=== PATIENT | female | born 1950 | race Caucasian/White ===

== ENCOUNTER → 2016-04-11 | Outpatient (CLI) | payer MEDICARE, OTHER ==
--- NOTE | 2016-04-11 09:07 | REPMRS ---
Patient History The patient states she has not had a clinical breast exam in over a year. Patient is postmenopausal and has history of skin cancer at age 61. Family history of ovarian cancer in mother at age 53. 2 benign stereotatic breast biopsies of the right breast, 2008. Benign excisional biopsy of the left breast, 1976. Digital Woman Screen Mammo: April 11, 2016 - Exam #: [id number] Bilateral CC and MLO view(s) were taken. Technologist: Breann Murry, Technologist Prior study comparison: March 04, 2015, digital woman screen mammo performed at [facility]. February 11, 2014, digital woman screen mammo performed at [facility]. February 08, 2013, digital woman screen mammo performed at [facility]. FINDINGS: There are scattered fibroglandular densities. There has been no change in the appearance of the mammogram from the prior studies. There is a needle biopsy marker clip in the right breast. There is a mild amount of scattered fibroglandular density which is fairly symmetric. There is no interval development of dominant mass, architectural distortion, or clustered microcalcification suggestive of malignancy. ASSESSMENT: BI-RADS/ACR category 1 mammogram. Negative. Recommendation Routine screening mammogram in 1 year (for women over age 40). This mammogram was interpreted with the aid of an FDA-approved computer-aided dectection system. Electronically Signed By: Ghassan Parra MD 04/11/16 0907
== END ==
LOC: M WHC 08:31
PROVIDERS: ATTEND Family Medicine
DX: Z12.31 Encounter for screening mammogram for malignant neoplasm of breast (principal); Z85.828 Personal history of other malignant neoplasm of skin

== ENCOUNTER → 2016-07-05 | Outpatient (CLI) | payer MEDICARE, OTHER ==
[~2016-07-05] MED LIST: AMLO25TA PO; ASPI1TAB PO; ATEN100T PO; ATOR40TA PO; CALC600T57 PO; JANU100T PO; LOSA100T36 PO; METF850T PO; VITA100L PO; VITA200016 PO
[2016-07-05 08:01] LABS: ANION GAP 7 MEQ/L (8-16); BLOOD UREA NITROGEN 9 MG/DL (7-18); CARBON DIOXIDE LEVEL 28 MEQ/L (21-32); CHLORIDE LEVEL 107 MEQ/L (98-107); CREATININE FOR GFR 0.69 MG/DL (0.55-1.02); GLOMERULAR FILTRATION RATE > 60.0 (>45); GLUCOSE, FASTING 98 MG/DL (80-110); POTASSIUM SERUM 4.1 MEQ/L (3.5-5.1); SODIUM LEVEL 142 MEQ/L (136-145)
--- NOTE | 2016-07-05 08:56 | REP ---
TWO VIEW CHEST: No priors. There is no evidence of acute infiltrate. No pleural effusion is seen. The heart is normal in size. The mediastinal silhouette is unremarkable. The visualized osseous structures are intact. IMPRESSION: No acute pulmonary disease. Signed by Bjorn Pope MD 07/05/2016 09:41 A
--- NOTE | 2016-07-05 22:56 | ECGEPIP ---
Stationary ECG Study [facility] Test Date: 2016-07-05 Pat Name: ADRIAN ALANIZ Department: Room: - Gender: F Parole Director: CAROLYNN : 1950 Requested By: Zen Zhao Order Number: [id number] Reading MD: Zen Velasco Measurements Intervals [place] Rate: 77 P: 78 [place]: 142 QRS: 38 QRSD: 80 T: 49 QT: 367 QTc: 416 Interpretive Statements SINUS RHYTHM, Nonspecific ST-T abnormalities. Longer [place] interval compared with 11/22/2011. Electronically Signed On 07-05-2016 22:56:25 EDT by Zen Velasco
== END ==
LOC: M LAB 06:51
PROVIDERS: ATTEND Ophthalmology
DX: E11.9 Type 2 diabetes mellitus without complications (principal); I10 Essential (primary) hypertension

== ENCOUNTER 2016-07-14 08:05 | Day surgery (SDC) | payer MEDICARE, OTHER ==
[~2016-07-14] VITALS: Ht 162.6 cm; Wt 55.3 kg
[~2016-07-14 08:05] MED LIST changes: +ACETYLCHOLINE OPHTH SOLN 1% 2ML As Ordered ONE; +BALANCED SALT IRRIGATION SOLUTION 500ML BAG (FOR OR EYE MACHINE) As Ordered ONE; +CEFUROXIME 1MG/0.1ML INTRACAMERAL INJ As Ordered ONE; +HEALON DUET (HEALON 10MG/ML 0.55ML & HEALON ENDOCOAT 30MG/ML 0.85ML) As Ordered ONE; +LIDOCAINE 0.75%/EPINEPHRINE 0.025% IN BSS 1ML SYR INTRACAMERAL (OR ONLY) As Ordered ONE; +OFLOXACIN 0.3 % (OCUFLOX) OPTH SOL 5ML OS ONE; +PHENYLEPHRINE 2.5% OPHTH SOL 2ML OS ONE; +POVIDONE-IODINE 5% OPHTH PREP SOL 30ML As Ordered ONE; +PROPARACAINE 0.5% OPHTH SOL 15ML OS ONE; +TOBRADEX OPHTH OINT 3.5 GM As Ordered ONE; +TROPICAMIDE 1% OPHTH SOLN 2 ML OS ONE
[2016-07-14] MEDS ORDERED: fentaNYL 100 MCG/2 ML INJECTION (J3010) As Ordered ONE (11:39)
[2016-07-14] MEDS ORDERED: MIDAZOLAM INJ 2 MG/2 ML VIAL (J2250) As Ordered ONE (11:39)
[2016-07-14 12:40] VITALS: BP 140/78
--- NOTE | 2016-07-15 08:55 | RO ---
DATE OF PROCEDURE: 07/14/2016 PREOPERATIVE DIAGNOSIS: Visually significant nuclear sclerotic cataract left eye. POSTOPERATIVE DIAGNOSIS: Visually significant nuclear sclerotic cataract left eye. PROCEDURE: Cataract extraction with use of phacoemulsification and placement of intraocular lens AU00T0, 17.0 diopter, left eye. SURGEON: Cody Ch DO CHIEF DATA OFFICER: ANESTHESIA: Local with monitored anesthesia care (MAC). COMPLICATIONS: None. POSTOPERATIVE CONDITION: Stable. INDICATION FOR SURGERY: Blurred vision right eye affecting patient's activities of daily living. DESCRIPTION OF PROCEDURE: The patient was seen in the preoperative area and properly identified. The correct operative eye was identified and marked. Attention was turned to that eye. The patient received topical antibiotics in the preoperative area. The patient then received topical dilating drops consisting of tropicamide and phenylephrine. The patient was then transferred to the operating room. The correct side was reidentified. The patient received topical anesthetics and antibiotics on the surface of the eye. The eye was prepped and draped in a sterile fashion. The upper and lower eyelids were isolated with Tegaderm tape, and the lids were held open with an adjustable speculum. Using a sideport blade, a paracentesis incision was made. Intraocular preservative-free lidocaine was then injected into the anterior chamber. Viscoelastic was then injected into the anterior chamber through the paracentesis. Using a 2.65 mm sharp-tipped keratome, the anterior chamber was entered via a temporal clear corneal incision. A continuous curvilinear capsulorrhexis was created with the aid of a 26-gauge cystotome and Utrata forceps. Hydrodissection was performed with balanced salt solution (BSS) on a blunt cannula until the nucleus was freely mobile. The crystalline lens was phacoemulsified and aspirated. Additional cohesive viscoelastic was placed into the capsular bag to deepen it. An AU00T0, 17.0 diopter lens was placed into the capsular bag and confirmed by visualizing the continuous curvilinear capsulorrhexis. Additional irrigation and aspiration was used to remove cortical material and remaining viscoelastic. The clear corneal incision was hydrated with BSS on a blunt cannula. The lens was well positioned. The incisions were then tested for leaks and found to be negative. The eye was then palpated for appropriate pressure and adjusted accordingly with BSS. The eyelid speculum was then carefully removed. Tobradex ointment was placed in the eye. An eye patch and shield were then secured over the eye. The patient tolerated the procedure well and was discharged to the recovery unit in a stable condition. ANN
== END 2016-07-14 12:40 | disposition home or self-care (01) ==
LOC: M SDC 08:05
PROVIDERS: ATTEND Ophthalmology
DX: H25.12 Age-related nuclear cataract, left eye (principal); E11.9 Type 2 diabetes mellitus without complications; I10 Essential (primary) hypertension; E78.5 Hyperlipidemia, unspecified; Z79.82 Long term (current) use of aspirin; Z79.899 Other long term (current) drug therapy; Z87.891 Personal history of nicotine dependence; Z86.73 Personal history of transient ischemic attack (TIA), and cerebral infarction without residual deficits
CPT/HCPCS: 66984; J2250; J3010; V2632

== ENCOUNTER → 2016-07-28 | Day surgery (SDC) | payer MEDICARE, OTHER ==
[~2016-07-28] VITALS: Ht 162.6 cm; Wt 55.3 kg
[~2016-07-28] MED LIST changes: +D5W/0.2% SODIUM CHLORIDE 250 ML IV SCH; +LIDOCAINE 4% INJ 5 ML AMP XX ONE; +MIDAZOLAM INJ 2 MG/2 ML VIAL (J2250) As Ordered ONE; +OFLOXACIN 0.3 % (OCUFLOX) OPTH SOL 5ML OD ONE; -OFLOXACIN 0.3 % (OCUFLOX) OPTH SOL 5ML OS ONE; +PHENYLEPHRINE 2.5% OPHTH SOL 2ML OD ONE; -PHENYLEPHRINE 2.5% OPHTH SOL 2ML OS ONE; +PROPARACAINE 0.5% OPHTH SOL 15ML OD ONE; -PROPARACAINE 0.5% OPHTH SOL 15ML OS ONE; +TROPICAMIDE 1% OPHTH SOLN 2 ML OD ONE; -TROPICAMIDE 1% OPHTH SOLN 2 ML OS ONE; +fentaNYL 100 MCG/2 ML INJECTION (J3010) As Ordered ONE
[2016-07-28 12:55] VITALS: BP 127/65
--- NOTE | 2016-07-29 10:07 | RO ---
DATE OF PROCEDURE: 07/28/2016 PREOPERATIVE DIAGNOSIS: Visually significant nuclear sclerotic cataract right eye. POSTOPERATIVE DIAGNOSIS: Visually significant nuclear sclerotic cataract right eye. PROCEDURE: Cataract extraction with use of phacoemulsification and placement of intraocular lens AU00T0, 17.0 Diopter, right eye. SURGEON: Cody Ch DO VOICE COACH: ANESTHESIA: Local with monitored anesthesia care (MAC). COMPLICATIONS: None. POSTOPERATIVE CONDITION: Stable. INDICATION FOR SURGERY: Blurred vision right eye affecting patient's activities of daily living. DESCRIPTION OF PROCEDURE: The patient was seen in the preoperative area and properly identified. The correct operative eye was identified and marked. Attention was turned to that eye. The patient received topical antibiotics in the preoperative area. The patient then received topical dilating drops consisting of tropicamide and phenylephrine. The patient was then transferred to the operating room. The correct side was reidentified. The patient received topical anesthetics and antibiotics on the surface of the eye. The eye was prepped and draped in a sterile fashion. The upper and lower eyelids were isolated with Tegaderm tape, and the lids were held open with an adjustable speculum. Using a sideport blade, a paracentesis incision was made. Intraocular preservative-free lidocaine was then injected into the anterior chamber. Viscoelastic was then injected into the anterior chamber through the paracentesis. Using a 2.65 mm sharp-tipped keratome, the anterior chamber was entered via a temporal clear corneal incision. A continuous curvilinear capsulorrhexis was created with the aid of a 26-gauge cystotome and Utrata forceps. Hydrodissection was performed with balanced salt solution (BSS) on a blunt cannula until the nucleus was freely mobile. The crystalline lens was phacoemulsified and aspirated. Additional cohesive viscoelastic was placed into the capsular bag to deepen it. An AU00T0 lens was placed into the capsular bag and confirmed by visualizing the continuous curvilinear capsulorrhexis. Additional irrigation and aspiration was used to remove cortical material and remaining viscoelastic. The clear corneal incision was hydrated with BSS on a blunt cannula. The lens was well positioned. The incisions were then tested for leaks and found to be negative. The eye was then palpated for appropriate pressure and adjusted accordingly with BSS. The eyelid speculum was then carefully removed. Tobradex ointment was placed in the eye. An eye patch and shield were then secured over the eye. The patient tolerated the procedure well and was discharged to the recovery unit in a stable condition. ANN
== END | disposition home or self-care (01) ==
LOC: M SDC 09:21
PROVIDERS: ATTEND Ophthalmology
DX: H25.11 Age-related nuclear cataract, right eye (principal); E11.9 Type 2 diabetes mellitus without complications; I10 Essential (primary) hypertension; E78.5 Hyperlipidemia, unspecified; Z86.79 Personal history of other diseases of the circulatory system; Z87.891 Personal history of nicotine dependence; Z79.899 Other long term (current) drug therapy; Z79.82 Long term (current) use of aspirin
CPT/HCPCS: 66984; J2250; J3010; V2632

== ENCOUNTER → 2016-08-08 | Outpatient (REF) | payer MEDICARE, OTHER ==
[~2016-08-08] MED LIST changes: -ACETYLCHOLINE OPHTH SOLN 1% 2ML As Ordered ONE; -BALANCED SALT IRRIGATION SOLUTION 500ML BAG (FOR OR EYE MACHINE) As Ordered ONE; -CEFUROXIME 1MG/0.1ML INTRACAMERAL INJ As Ordered ONE; -D5W/0.2% SODIUM CHLORIDE 250 ML IV SCH; -HEALON DUET (HEALON 10MG/ML 0.55ML & HEALON ENDOCOAT 30MG/ML 0.85ML) As Ordered ONE; -LIDOCAINE 0.75%/EPINEPHRINE 0.025% IN BSS 1ML SYR INTRACAMERAL (OR ONLY) As Ordered ONE; -LIDOCAINE 4% INJ 5 ML AMP XX ONE; -MIDAZOLAM INJ 2 MG/2 ML VIAL (J2250) As Ordered ONE; -OFLOXACIN 0.3 % (OCUFLOX) OPTH SOL 5ML OD ONE; -PHENYLEPHRINE 2.5% OPHTH SOL 2ML OD ONE; -POVIDONE-IODINE 5% OPHTH PREP SOL 30ML As Ordered ONE; -PROPARACAINE 0.5% OPHTH SOL 15ML OD ONE; -TOBRADEX OPHTH OINT 3.5 GM As Ordered ONE; -TROPICAMIDE 1% OPHTH SOLN 2 ML OD ONE; -fentaNYL 100 MCG/2 ML INJECTION (J3010) As Ordered ONE
[2016-08-08 16:20] LABS: ALBUMIN 3.6 GM/DL (3.2-5.2); ALBUMIN/GLOBULIN RATIO 1.09 (1.00-1.93); ALKALINE PHOSPHATASE 70 U/L (45-117); ALT/SGPT 21 U/L (12-78); ANION GAP 7 MEQ/L (8-16); AST/SGOT 24 U/L (15-37); BILIRUBIN,TOTAL 1.1 MG/DL (0.2-1.0); BLOOD UREA NITROGEN 11 MG/DL (7-18); CALCIUM LEVEL 9.1 MG/DL (8.8-10.2); CARBON DIOXIDE LEVEL 30 MEQ/L (21-32); CHLORIDE LEVEL 106 MEQ/L (98-107); CHOLESTEROL LEVEL 171 MG/DL (<200); CREATININE FOR GFR 0.69 MG/DL (0.55-1.02); GLOMERULAR FILTRATION RATE > 60.0 (>45); GLUCOSE, FASTING 91 MG/DL (80-110); POTASSIUM SERUM 4.2 MEQ/L (3.5-5.1); SODIUM LEVEL 143 MEQ/L (136-145); TOTAL PROTEIN 6.9 GM/DL (6.4-8.2); TRIGLYCERIDES LEVEL 73 MG/DL (<150)
== END ==
LOC: M SFHCPLAZ 09:55
PROVIDERS: ATTEND Family Medicine
DX: E78.2 Mixed hyperlipidemia (principal); E11.9 Type 2 diabetes mellitus without complications

== ENCOUNTER → 2016-12-14 | Outpatient (CLI) | payer MEDICARE, OTHER ==
[~2016-12-14] MED LIST changes: -ATOR40TA PO; +ATOR40TA75 PO; -METF850T PO; +METF850T4 PO
--- NOTE | 2016-12-15 16:02 | REP ---
MRA BRAIN WITHOUT CONTRAST: 12/14/2016. COMPARISON: 12/15/2014, 12/14/2013, 11/26/2012. CLINICAL HISTORY: Follow-up anterior communicating artery aneurysm. TECHNIQUE: 3D [id number], gradient echo, axial images without contrast for a volume acquisition and MIP reformats of the volume acquisition rotated about the longitudinal and horizontal axis of the brain for anterior and posterior circulations. All source images are reviewed. On the initial images which were the first that she has had on new 3T scan, had the well visualized anterior communicating artery aneurysm at 6 mm size on multiple previous scans is occult benign finding on both the source images and MIP reformats. In addition, there is artifact at the internal carotid artery turning horizontally in the skull base in bilateral fashion which is felt to be flow related. I asked that the patient return for repeat scanning on 12/15/2016 with different technical parameters. The dictation below reflects those parameters and findings. FINDINGS: The source images do demonstrate the 6 mm anterior communicating artery aneurysm very well and it is unchanged in size and appearance from the previous studies. The source images also show less artifact in the horizontal portions of the internal carotids as they from vertical to horizontal in the temporal bones. There are no other aneurysms evident in the anterior or posterior circulation. There is a dominant left vertebral artery contribution to the basilar artery with basilar tortuosity without aneurysm. There is a origin in part for the posterior cerebral artery on the right with patent posterior communicating artery while the left posterior cerebral artery as its sole supply from the basilar tip. No basilar tip aneurysm. The right internal carotid shows no stenosis or aneurysm in the skull base to the carotid siphons. Some flow artifact suggested at the term from vertical to horizontal in the temporal bone as on previous studies in 2014 and earlier but certainly less notable than on yesterday's initial scan at 3T. The cavernous sinus shows some minimal atherosclerotic changes. The supraclinoid carotid, A1 and M1 segments were intact. The middle cerebral artery branches were unremarkable. There is anterior communicating artery aneurysm which is best seen on the source images but is seen also on the tumble images of the whole brain and better than the individual right and left internal carotid MIP's. Certainly the left internal carotid shows no stenosis or aneurysm. There is minor atherosclerotic changes in the carotid siphon. The supraclinoid, A1 and M1 segments are unchanged. There is a smaller left than right A1 segment. The anterior communicating artery aneurysm is seen on the tumble images. The A2 and M2 segments and their branches grossly intact. IMPRESSION: 1. 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 Best seen on the source images but also seen on other sequences and MIP reformats but not changed from the multiple prior studies. No other significant finding. Stable exam. Signed by Akbar Reyes MD 12/15/2016 05:16 P
== END ==
LOC: M RAD 09:41
PROVIDERS: ATTEND Family Medicine
DX: I67.1 Cerebral aneurysm, nonruptured (principal)

== ENCOUNTER → 2017-04-19 | Outpatient (CLI) | payer MEDICARE, OTHER | LOC: M WHC 07:56 | DX: Z12.31 Encounter for screening mammogram for malignant neoplasm of breast (principal); Z78.0 Asymptomatic menopausal state; Z86.000 Personal history of in-situ neoplasm of breast; M85.80 Other specified disorders of bone density and structure, unspecified site | CPT/HCPCS: 77067 ==

== ENCOUNTER → 2017-05-11 | Outpatient (CLI) | payer MEDICARE, OTHER | LOC: M WUC 09:36 | DX: R05 Cough (principal) | CPT/HCPCS: 71046 ==

== ENCOUNTER → 2017-06-29 | Outpatient (REF) | payer MEDICARE, OTHER | LOC: M LAB REF 17:56 | DX: C44.519 Basal cell carcinoma of skin of other part of trunk (principal) | CPT/HCPCS: 88305 ==

== ENCOUNTER → 2017-08-04 | Outpatient (REF) | payer MEDICARE, OTHER ==
[2017-08-04 12:12] LABS: BASO % 0.5 % (0.0-1.0); EOS # 0.1 10^3/uL (0.0-0.50); EOS % 1.1 % (0.0-3.0); HEMATOCRIT 40.1 % (36.0-47.0); IMMATURE GRANULOCYTE % 0.2 % (0-3.0); LYMPH # 1.7 10^3/uL (1.5-4.5); LYMPH % 27.3 % (24.0-44.0); MEAN CORPUSCULAR HEMOGLOBIN 29.1 pg (27.0-33.0); MEAN CORPUSCULAR HGB CONC 32.4 g/dl (32.0-36.5); MEAN CORPUSCULAR VOLUME 89.9 fl (80.0-96.0); MONO # 0.6 10^3/uL (0.0-0.8); NEUTROPHILS # 3.7 10^3/uL (1.8-7.7); NEUTROPHILS % 60.9 % (36.0-66.0); PLATELET COUNT, AUTOMATED 340 10^3/uL (150-450); RED BLOOD COUNT 4.46 10^6/uL (4.00-5.40); RED CELL DISTRIBUTION WIDTH 13.6 % (11.5-14.5); WHITE BLOOD COUNT 6.1 10^3/uL (4.0-10.0)
[2017-08-04 12:48] LABS: ALBUMIN 3.5 GM/DL (3.2-5.2); ALBUMIN/GLOBULIN RATIO 1.03 (1.00-1.93); ALKALINE PHOSPHATASE 65 U/L (45-117); ALT/SGPT 22 U/L (12-78); ANION GAP 7 MEQ/L (8-16); AST/SGOT 29 U/L (7-37); BILIRUBIN,TOTAL 0.8 MG/DL (0.2-1.0); BLOOD UREA NITROGEN 9 MG/DL (7-18); CARBON DIOXIDE LEVEL 28 MEQ/L (21-32); CHLORIDE LEVEL 108 MEQ/L (98-107); CREATININE FOR GFR 0.66 MG/DL (0.55-1.30); FERRITIN 7 NG/ML (8-252); GLOMERULAR FILTRATION RATE > 60.0 (>45); GLUCOSE, FASTING 93 MG/DL (70-100); IRON (FE) 44 UG/DL (50-170); MAGNESIUM LEVEL 1.5 MG/DL (1.8-2.4); PERCENT SATURATION 11.1 % (13.2-45.0); POTASSIUM SERUM 4.4 MEQ/L (3.5-5.1); SODIUM LEVEL 143 MEQ/L (136-145); TOTAL IRON BINDING CAPACITY 398 UG/DL (250-450); TOTAL PROTEIN 6.9 GM/DL (6.4-8.2); VITAMIN B12 LEVEL 1354 PG/ML (247-911)
[2017-08-04 12:49] LABS: ESTIMATED AVERAGE GLUCOSE 123 MG/DL (60-110); HEMOGLOBIN A1c 5.9 %
== END ==
LOC: M LABDRAW1 08:08
DX: E53.8 Deficiency of other specified B group vitamins (principal); E11.9 Type 2 diabetes mellitus without complications; I10 Essential (primary) hypertension
CPT/HCPCS: 83550

== ENCOUNTER → 2017-08-31 | Outpatient (CLI) | payer MEDICARE, OTHER | LOC: M WUC 09:30 | DX: M19.071 Primary osteoarthritis, right ankle and foot (principal); M85.871 Other specified disorders of bone density and structure, right ankle and foot | CPT/HCPCS: 73630 ==

== ENCOUNTER → 2018-05-08 | Outpatient (REF) | payer MEDICARE, OTHER ==
[~2018-05-08] MED LIST changes: -LOSA100T36 PO; +LOSA100T50 PO
[2018-05-08 10:51] LABS: APPEARANCE, URINE CLEAR (CLEAR); BACTERIA, URINE AUTO NEGATIVE (NEGATIVE); BILIRUBIN, URINE AUTO NEGATIVE (NEGATIVE); BLOOD, URINE BLOOD NEGATIVE (NEGATIVE); COLOR, URINE YELLOW (YELLOW); GLUCOSE, URINE (UA) AUTO NEGATIVE (NEGATIVE); KETONE, URINE AUTO NEGATIVE (NEGATIVE); LEUKOCYTE ESTERASE, URINE AUTO NEGATIVE (NEGATIVE); MUCUS, URINE SMALL (NEGATIVE); NITRITE, URINE AUTO NEGATIVE (NEGATIVE); PROTEIN, URINE AUTO NEGATIVE (NEGATIVE); RBC, URINE AUTO 0 /HPF (0-3); SPECIFIC GRAVITY URINE AUTO 1.016 (1.002-1.035); SQUAMOUS EPITHELIAL CELL UR AU 0 /HPF (0-6); UROBILINOGEN, URINE AUTO 0.2 mg/dL (0.0-2.0); WBC, URINE AUTO 0 /HPF (0-3)
[2018-05-08 10:53] LABS: BASO % 0.4 % (0.0-1.0); EOS % 0.4 % (0.0-3.0); HEMATOCRIT 40.2 % (36.0-47.0); LYMPH # 1.8 10^3/uL (1.5-4.5); LYMPH % 26.3 % (24.0-44.0); MEAN CORPUSCULAR HEMOGLOBIN 29.1 pg (27.0-33.0); MEAN CORPUSCULAR HGB CONC 32.3 g/dl (32.0-36.5); MEAN CORPUSCULAR VOLUME 89.9 fl (80.0-96.0); MONO # 0.6 10^3/uL (0.0-0.8); MONO % 8.6 % (0.0-5.0); NEUTROPHILS # 4.4 10^3/uL (1.8-7.7); NEUTROPHILS % 63.9 % (36.0-66.0); PLATELET COUNT, AUTOMATED 335 10^3/uL (150-450); RED BLOOD COUNT 4.47 10^6/uL (4.00-5.40); WHITE BLOOD COUNT 6.9 10^3/uL (4.0-10.0)
[2018-05-08 10:58] LABS: ALBUMIN 3.7 GM/DL (3.2-5.2); ALT/SGPT 23 U/L (12-78); BILIRUBIN,TOTAL 1.2 MG/DL (0.2-1.0); BLOOD UREA NITROGEN 11 MG/DL (7-18); CALCIUM LEVEL 9.1 MG/DL (8.8-10.2); CARBON DIOXIDE LEVEL 26 MEQ/L (21-32); CHLORIDE LEVEL 106 MEQ/L (98-107); CHOLESTEROL LEVEL 171 MG/DL (<200); CHOLESTEROL RISK RATIO 1.921 (<5); CREATININE FOR GFR 0.73 MG/DL (0.55-1.30); GLOMERULAR FILTRATION RATE > 60.0 (>45); GLUCOSE, FASTING 90 MG/DL (70-100); HDL CHOLESTEROL 89 MG/DL (>40); LDL CHOLESTEROL 67 MG/DL (<100); NON-HDL-C 82 MG/DL; POTASSIUM SERUM 4.2 MEQ/L (3.5-5.1); SODIUM LEVEL 141 MEQ/L (136-145); TOTAL PROTEIN 6.9 GM/DL (6.4-8.2); TRIGLYCERIDES LEVEL 74 MG/DL (<150)
[2018-05-08 11:33] LABS: HEMOGLOBIN A1c 6.3 %
[2018-05-08 11:36] LABS: MAU/CREAT RATIO 5.5 MCG/MG (0.0-30.0)
[2018-05-08 11:51] LABS: PTH INTACT 30.1 PG/ML (18.5-88.0); TOTAL 25(OH) VITAMIN D 68.1 NG/ML (30.0-100.0)
== END ==
LOC: M LABDRAW1 09:17
PROVIDERS: ATTEND Family Medicine
DX: D50.9 Iron deficiency anemia, unspecified (principal); E55.9 Vitamin D deficiency, unspecified; E11.9 Type 2 diabetes mellitus without complications; Z79.899 Other long term (current) drug therapy

== ENCOUNTER → 2018-07-03 | Outpatient (CLI) | payer MEDICARE, OTHER ==
[~2018-07-03] MED LIST changes: -ASPI1TAB PO; +ASPI81TA26 PO
--- NOTE | 2018-07-03 09:47 | REPMRS ---
Patient History The patient states she has not had a clinical breast exam in over a year. Patient is postmenopausal and has history of basal cell skin cancer at age 61. Family history of ovarian cancer at age 53 in mother. 2 benign stereotatic breast biopsies of the right breast, 2008. Benign excisional biopsy of the left breast, 1976. No Hormone Replacement Therapy 3D TOMOSYNTHESIS WAS PERFORMED. Digital Woman Screen Mammo: July 03, 2018 - Exam #: [id number] Bilateral CC and MLO view(s) were taken. Technologist: Teagan Haung, Technologist Prior study comparison: April 19, 2017, digital woman screen mammo performed at [facility]. April 11, 2016, digital woman screen mammo performed at [facility]. FINDINGS: The breast tissue is heterogeneously dense. This may lower the sensitivity of mammography. There has been no change in the appearance of the mammogram from the prior studies. There is a moderate amount of residual fibroglandular tissue which is fairly symmetric. There is no interval development of dominant mass, areas of architectural distortion, or clustered microcalcification typical of malignancy. Assessment: BI-RADS/ACR category 1 mammogram. Negative Mammogram. Recommendation Routine screening mammogram in 1 year (for women over age 40). This mammogram was interpreted with the aid of an FDA-approved computer-aided dectection system. Electronically Signed By: Bjorn Pope MD 07/03/18 0947
--- NOTE | 2018-07-03 11:39 | REP ---
RIGHT UPPER QUADRANT ULTRASOUND: Real-time sonographic evaluation of the right upper quadrant performed. There are multiple tiny 2 mm polyps in the gallbladder. No gallstones are seen. There is no significant gallbladder wall thickening. There is no free fluid in the right upper quadrant. There is no intrahepatic or extrahepatic biliary dilatation, common bile duct measuring 6 mm. The liver demonstrates a few cysts, one is seen in the superior posterior left lobe of the liver 9 x 14 x 13 mm containing a septation, another is seen in the superior left lobe 1.9 cm in diameter and another is seen in the posterior superior right lobe of the liver 2.7 cm in diameter. In that of the pancreas, there is an ill-defined hypoechoic area measuring 1.8 x 1.7 x 0.7 cm. Right kidney demonstrates no hydronephrosis with length of 9.1 cm. IMPRESSION: Several tiny polyps in the gallbladder without gallstones, gallbladder wall thickening or free fluid. No biliary dilatation. There are a few cysts seen in the liver as discussed above. There is an ill-defined hypoechoic area in the head of the pancreas 1.8 x 1.7 x 0.7 cm. I would recommended dedicated MRI of the pancreas with and without contrast to further evaluate.
== END ==
LOC: M WHC 08:55
PROVIDERS: ATTEND Family Medicine
DX: Z12.31 Encounter for screening mammogram for malignant neoplasm of breast (principal); E80.4 Gilbert syndrome; Z80.41 Family history of malignant neoplasm of ovary; Z85.828 Personal history of other malignant neoplasm of skin

== ENCOUNTER → 2018-07-06 | Outpatient (CLI) | payer MEDICARE, OTHER ==
--- NOTE | 2018-07-06 10:05 | REP ---
MRI PANCREAS WITH AND WITHOUT CONTRAST: Multiple sequences obtained in the axial and coronal planes prior to and following the intravenous administration of 10 mL ProHance. Recent ultrasound showed a possible lesion in the head of the pancreas. Pancreas demonstrates homogeneous signal. There is a 4 mm cyst in the tail of the pancreas. No other pancreatic cyst or mass is seen. Pancreatic duct is normal in caliber. Common bile duct is normal in caliber. The visualized portions of the liver demonstrate multiple cysts. The largest is in the posterior inferior right lobe measuring 2.9 cm in diameter. The spleen and adrenals are unremarkable. Subcentimeter cyst is seen in the upper pole of the right kidney. There is no hydronephrosis. I see no adenopathy or free fluid in the visualized abdomen. Initial coronal images show a cystic structure in the right pelvis measuring 2.7 cm in diameter. Comparing back to a prior pelvic ultrasound 06/19/2013 there was a cyst in the right ovary at that time which had a maximum diameter of 2.9 cm and therefore this is likely a stable cyst. Also noted is an apparent 1 cm uterine fibroid. IMPRESSION: No suspicious pancreatic mass. No abnormality is seen in the head of the pancreas. There is a benign appearing 4 mm cyst in the tail of the pancreas. There is no pancreatic duct or common bile duct dilatation. Multiple cysts are seen in the liver. Also incidentally noted is a right adnexal cyst measuring 2.7 cm in maximum diameter, likely unchanged since the prior pelvic ultrasound 06/19/2013. Also incidentally noted is a 1 cm uterine fibroid also seen on that prior pelvic ultrasound. Electronically Signed by Bjorn Pope MD 07/06/2018 04:14 P
== END ==
LOC: M PLARAD 07:38
PROVIDERS: ATTEND Family Medicine
DX: K86.9 Disease of pancreas, unspecified (principal); N83.8 Other noninflammatory disorders of ovary, fallopian tube and broad ligament; K76.89 Other specified diseases of liver; D25.9 Leiomyoma of uterus, unspecified

== ENCOUNTER → 2018-11-16 | Outpatient (REF) | payer MEDICARE, OTHER ==
[2018-11-16 11:58] LABS: BASO % 0.5 % (0.0-1.0); EOS # 0.1 10^3/uL (0.0-0.50); EOS % 0.9 % (0.0-3.0); HEMATOCRIT 40.3 % (36.0-47.0); HEMOGLOBIN 12.8 g/dl (12.0-15.5); LYMPH # 1.9 10^3/uL (1.5-4.5); LYMPH % 22.1 % (24.0-44.0); MEAN CORPUSCULAR HEMOGLOBIN 27.9 pg (27.0-33.0); MEAN CORPUSCULAR HGB CONC 31.8 g/dl (32.0-36.5); MEAN CORPUSCULAR VOLUME 87.8 fl (80.0-96.0); MONO # 0.7 10^3/uL (0.0-0.8); MONO % 7.9 % (0.0-5.0); NEUTROPHILS # 5.9 10^3/uL (1.8-7.7); NEUTROPHILS % 68.3 % (36.0-66.0); PLATELET COUNT, AUTOMATED 361 10^3/uL (150-450); RED BLOOD COUNT 4.59 10^6/uL (4.00-5.40); WHITE BLOOD COUNT 8.6 10^3/uL (4.0-10.0)
[2018-11-16 12:05] LABS: ALBUMIN 3.5 GM/DL (3.2-5.2); ALT/SGPT 25 U/L (12-78); BILIRUBIN,DIRECT 0.2 MG/DL (0.0-0.2); BILIRUBIN,TOTAL 0.8 MG/DL (0.2-1.0); BLOOD UREA NITROGEN 15 MG/DL (7-18); CALCIUM LEVEL 9.5 MG/DL (8.8-10.2); CARBON DIOXIDE LEVEL 29 MEQ/L (21-32); CHLORIDE LEVEL 105 MEQ/L (98-107); CREATININE FOR GFR 0.85 MG/DL (0.55-1.30); GLOMERULAR FILTRATION RATE > 60.0 (>45); GLUCOSE, FASTING 85 MG/DL (70-100); MAGNESIUM LEVEL 1.4 MG/DL (1.8-2.4); POTASSIUM SERUM 4.3 MEQ/L (3.5-5.1); SODIUM LEVEL 141 MEQ/L (136-145); TOTAL PROTEIN 6.7 GM/DL (6.4-8.2)
[2018-11-16 12:11] LABS: VITAMIN B12 LEVEL 907 PG/ML (247-911)
[2018-11-16 13:00] LABS: HEMOGLOBIN A1c 6.3 %
== END ==
LOC: M LABDRAW1 08:09
PROVIDERS: ATTEND Family Medicine
DX: I10 Essential (primary) hypertension (principal); E11.9 Type 2 diabetes mellitus without complications

== ENCOUNTER → 2018-12-07 | Outpatient (CLI) | payer MEDICARE, OTHER ==
--- NOTE | 2018-12-07 16:11 | REP ---
MR angiography the brain without contrast: History: A followup for known anterior communicating artery aneurysm, 6 mm by prior studies. Technique: 3-D [id number] MR angiography of the brain is acquired in the usual fashion and maximal intensity projection images were generated in rotational format about the vertical and horizontal axes. In addition, source axial T1-weighted images are viewed in cine mode. MR angiographic findings: The distal vertebral arteries are patent left is dominant. Basilar artery is a little tortuous but widely patent. The posterior cerebral and superior cerebellar vessels are normal and symmetric. The distal internal carotid arteries are unremarkable. Anterior and middle cerebral arteries appear intact. The known 6 mm anterior communicating artery aneurysm is again seen unchanged in size or appearance. It is best seen on source images as on previous studies. There is no new aneurysm. There is no evidence of arterial venous malformation. Impression: Stable 6 mm anterior communicating artery bell aneurysm unchanged from multiple prior studies. Otherwise unremarkable MR angiography the brain. Electronically Signed by Darwin Parra MD 12/07/2018 08:22 A
== END ==
LOC: M PLARAD 07:35
PROVIDERS: ATTEND Family Medicine
DX: I67.1 Cerebral aneurysm, nonruptured (principal)

== ENCOUNTER → 2019-05-17 | Outpatient (REF) | payer MEDICARE, OTHER ==
[2019-05-17 12:42] LABS: BASO % 0.4 % (0.0-1.0); EOS # 0.1 10^3/uL (0.0-0.5); EOS % 0.6 % (0.0-3.0); HEMATOCRIT 41.8 % (36.0-47.0); HEMOGLOBIN 13.1 g/dl (12.0-15.5); LYMPH # 2.3 10^3/uL (1.5-5.0); MEAN CORPUSCULAR HEMOGLOBIN 28.4 pg (27.0-33.0); MEAN CORPUSCULAR HGB CONC 31.3 g/dl (32.0-36.5); MEAN CORPUSCULAR VOLUME 90.5 fl (80.0-96.0); MONO # 0.7 10^3/uL (0.0-0.8); MONO % 8.5 % (0.0-5.0); NEUTROPHILS # 4.8 10^3/uL (1.5-8.5); NEUTROPHILS % 61.1 % (36.0-66.0); PLATELET COUNT, AUTOMATED 322 10^3/uL (150-450); RED BLOOD COUNT 4.62 10^6/uL (4.00-5.40); WHITE BLOOD COUNT 7.9 10^3/uL (4.0-10.0)
[2019-05-17 13:01] LABS: ALBUMIN 3.6 GM/DL (3.2-5.2); ALT/SGPT 21 U/L (12-78); BILIRUBIN,TOTAL 0.9 MG/DL (0.2-1.0); BLOOD UREA NITROGEN 14 MG/DL (7-18); CALCIUM LEVEL 9.2 MG/DL (8.8-10.2); CARBON DIOXIDE LEVEL 28 MEQ/L (21-32); CHLORIDE LEVEL 106 MEQ/L (98-107); CHOLESTEROL LEVEL 156 MG/DL (<200); CHOLESTEROL RISK RATIO 2.052 (<5); CREATININE FOR GFR 0.76 MG/DL (0.55-1.30); FREE T4 1.21 NG/DL (0.76-1.46); GLOMERULAR FILTRATION RATE > 60.0 (>39); GLUCOSE, FASTING 96 MG/DL (70-100); HDL CHOLESTEROL 76 MG/DL (>40); LDL CHOLESTEROL 67 MG/DL (<100); NON-HDL-C 80 MG/DL; POTASSIUM SERUM 4.1 MEQ/L (3.5-5.1); PTH INTACT 26.7 PG/ML (18.5-88.0); SODIUM LEVEL 142 MEQ/L (136-145); TOTAL 25(OH) VITAMIN D 73.1 NG/ML (30.0-100.0); TOTAL PROTEIN 6.6 GM/DL (6.4-8.2); TRIGLYCERIDES LEVEL 64 MG/DL (<150)
[2019-05-17 13:07] LABS: HEMOGLOBIN A1c 6.1 %
== END ==
LOC: M LABDRAW1 11:57
PROVIDERS: ATTEND Family Medicine
DX: D50.9 Iron deficiency anemia, unspecified (principal); E11.9 Type 2 diabetes mellitus without complications; E55.9 Vitamin D deficiency, unspecified

== ENCOUNTER → 2019-06-07 | Outpatient (CLI) | payer MEDICARE, OTHER ==
--- NOTE | 2019-06-07 11:05 | REP ---
LUMBAR SPINE SERIES: Seven views. HISTORY: Spondylosis. Comparison lumbar spine radiographs are from December 07, 2014. FINDINGS: Lumbar vertebral body heights are preserved. Alignment is normal and unchanged. There is degenerative disc spurring and L2-3 and L1-2 essentially unchanged from the 2015 study. Pedicles and posterior elements are intact. Facet sclerosis and hypertrophy is noted bilaterally at L5-S1 in L4-5. There is some left-sided facet hypertrophy at L3-4. The pedicles and posterior elements are intact. Sacrum and SI joints are unremarkable. Psoas margins are symmetric. Bowel gas pattern is normal. There is an irregular 1.1 cm calcification in the central pelvis most consistent with uterine myomatous calcification. This is unchanged. IMPRESSION: Degenerative spondylosis changes. No acute bony abnormality. Findings essentially unchanged from the 2015 prior study. Electronically Signed by Darwin Parra MD 06/07/2019 06:38 P
--- NOTE | 2019-06-07 11:07 | REP ---
THORACIC SPINE SERIES: Three views. HISTORY: Spondylosis. Comparison is made with chest x-ray films from May 11, 2017. FINDINGS: Thoracic vertebral body heights are preserved. Alignment is normal. No fracture or collapse is seen. There is mild discogenic spurring in mid thoracic levels. There is diffuse osteopenia. Swimmer's lateral view shows degenerative disc disease in the lower cervical spine as well. No paravertebral soft-tissue mass or edema is seen. IMPRESSION: Degenerative disc changes mild in degree. Diffuse osteopenia. No acute bony abnormality. Electronically Signed by Darwin Parra MD 06/07/2019 06:38 P
== END ==
LOC: M WUC 08:52
PROVIDERS: ATTEND Family Medicine
DX: M47.816 Spondylosis without myelopathy or radiculopathy, lumbar region (principal); M85.88 Other specified disorders of bone density and structure, other site; M50.33 Other cervical disc degeneration, cervicothoracic region

== ENCOUNTER → 2019-09-12 | Outpatient (CLI) | payer MEDICARE, OTHER ==
--- NOTE | 2019-09-12 09:07 | REPMRS ---
Patient History The patient states she had a clinical breast exam in 2018.Patient is postmenopausal and has history of other cancer at age 61. Family history of ovarian cancer at age 53 in mother. 2 benign stereotatic breast biopsies of the right breast, 2008. Benign excisional biopsy of the left breast, 1976. No Hormone Replacement Therapy 3D TOMOSYNTHESIS WAS PERFORMED. The [facility] lifetime risk for breast cancer is 4.1%. Volpara density B. Digital Woman Screen Mammo: September 12, 2019 - Exam #: [id number] Bilateral CC and MLO view(s) were taken. Technologist: Sheri Yanez, Technologist Prior study comparison: July 03, 2018, bilateral digital woman screen mammo performed at [facility]. April 19, 2017, digital woman screen mammo performed at [facility]. FINDINGS: The breast tissue is heterogeneously dense. This may lower the sensitivity of mammography. There has been no change in the appearance of the mammogram from the prior studies. There is a moderate amount of residual fibroglandular tissue which is fairly symmetric. There is no interval development of dominant mass, areas of architectural distortion, or clustered microcalcification typical of malignancy. Assessment: BI-RADS/ACR category 1 mammogram. Negative Mammogram. Recommendation Routine screening mammogram in 1 year (for women over age 40). This mammogram was interpreted with the aid of an FDA-approved computer-aided dectection system. Electronically Signed By: Bjorn Pope MD 09/12/19 0907
== END ==
LOC: M WHC 06:59
PROVIDERS: ATTEND Family Medicine
DX: Z12.31 Encounter for screening mammogram for malignant neoplasm of breast (principal); Z80.41 Family history of malignant neoplasm of ovary; Z85.9 Personal history of malignant neoplasm, unspecified

== ENCOUNTER → 2019-10-31 | Outpatient (REF) | payer MEDICARE, OTHER ==
[2019-11-26 12:45] LABS: APPEARANCE, URINE CLEAR (CLEAR); BACTERIA, URINE AUTO NEGATIVE (NEGATIVE); BILIRUBIN, URINE AUTO NEGATIVE (NEGATIVE); BLOOD, URINE BLOOD NEGATIVE (NEGATIVE); COLOR, URINE YELLOW (YELLOW); GLUCOSE, URINE (UA) AUTO NEGATIVE (NEGATIVE); KETONE, URINE AUTO NEGATIVE (NEGATIVE); LEUKOCYTE ESTERASE, URINE AUTO NEGATIVE (NEGATIVE); MUCUS, URINE SMALL (NEGATIVE); NITRITE, URINE AUTO NEGATIVE (NEGATIVE); PROTEIN, URINE AUTO NEGATIVE (NEGATIVE); RBC, URINE AUTO 0 /HPF (0-3); SPECIFIC GRAVITY URINE AUTO 1.014 (1.002-1.035); SQUAMOUS EPITHELIAL CELL UR AU 0 /HPF (0-6); UROBILINOGEN, URINE AUTO 0.2 mg/dL (0.0-2.0); WBC, URINE AUTO 1 /HPF (0-3)
[2019-11-26 14:36] LABS: BASO # 0.1 10^3/uL (0.0-0.2); BASO % 0.8 % (0.0-1.0); EOS # 0.1 10^3/uL (0.0-0.5); EOS % 1.1 % (0.0-3.0); HEMATOCRIT 42.9 % (36.0-47.0); HEMOGLOBIN 13.5 g/dl (12.0-15.5); LYMPH # 1.9 10^3/uL (1.5-5.0); LYMPH % 26.9 % (24.0-44.0); MEAN CORPUSCULAR HEMOGLOBIN 28.2 pg (27.0-33.0); MEAN CORPUSCULAR HGB CONC 31.5 g/dl (32.0-36.5); MEAN CORPUSCULAR VOLUME 89.7 fl (80.0-96.0); MONO # 0.6 10^3/uL (0.0-0.8); MONO % 8.9 % (0.0-5.0); NEUTROPHILS # 4.5 10^3/uL (1.5-8.5); NEUTROPHILS % 61.9 % (36.0-66.0); PLATELET COUNT, AUTOMATED 329 10^3/uL (150-450); RED BLOOD COUNT 4.78 10^6/uL (4.00-5.40); WHITE BLOOD COUNT 7.2 10^3/uL (4.0-10.0)
[2019-12-08 09:12] LABS: ALBUMIN 3.8 GM/DL (3.2-5.2); ALT/SGPT 21 U/L (12-78); BLOOD UREA NITROGEN 12 MG/DL (7-18); CALCIUM LEVEL 9.3 MG/DL (8.8-10.2); CARBON DIOXIDE LEVEL 28 MEQ/L (21-32); CHLORIDE LEVEL 106 MEQ/L (98-107); GLOMERULAR FILTRATION RATE > 60.0 (>39); GLUCOSE, FASTING 99 MG/DL (70-100); MALB URINE SIEMENS 20.3 MG/L; POTASSIUM SERUM 4.3 MEQ/L (3.5-5.1); SODIUM LEVEL 140 MEQ/L (136-145)
== END ==
LOC: M SFHCPLAZ 11:11
PROVIDERS: ATTEND Family Medicine
DX: E11.9 Type 2 diabetes mellitus without complications (principal); E53.8 Deficiency of other specified B group vitamins

== ENCOUNTER → 2020-04-21 | Outpatient (REF) | payer MEDICARE, OTHER ==
[2020-04-21 11:29] LABS: BASO % 0.5 % (0.0-1.0); EOS # 0.1 10^3/uL (0.0-0.5); EOS % 0.6 % (0.0-3.0); HEMATOCRIT 41.4 % (36.0-47.0); HEMOGLOBIN 13.2 g/dl (12.0-15.5); LYMPH # 1.7 10^3/uL (1.5-5.0); LYMPH % 21.6 % (24.0-44.0); MEAN CORPUSCULAR HEMOGLOBIN 28.4 pg (27.0-33.0); MEAN CORPUSCULAR HGB CONC 31.9 g/dl (32.0-36.5); MEAN CORPUSCULAR VOLUME 89.2 fl (80.0-96.0); MONO # 0.6 10^3/uL (0.0-0.8); MONO % 8.1 % (0.0-5.0); NEUTROPHILS # 5.4 10^3/uL (1.5-8.5); NEUTROPHILS % 68.8 % (36.0-66.0); PLATELET COUNT, AUTOMATED 335 10^3/uL (150-450); RED BLOOD COUNT 4.64 10^6/uL (4.00-5.40); WHITE BLOOD COUNT 7.9 10^3/uL (4.0-10.0)
[2020-04-21 11:48] LABS: HEMOGLOBIN A1c 5.7 %
[2020-04-21 11:50] LABS: ALBUMIN 3.6 GM/DL (3.2-5.2); ALT/SGPT 22 U/L (12-78); BILIRUBIN,TOTAL 0.9 MG/DL (0.2-1.0); BLOOD UREA NITROGEN 11 MG/DL (7-18); CALCIUM LEVEL 9.6 MG/DL (8.8-10.2); CARBON DIOXIDE LEVEL 28 MEQ/L (21-32); CHLORIDE LEVEL 107 MEQ/L (98-107); CREATININE FOR GFR 0.86 MG/DL (0.55-1.30); FERRITIN 6 NG/ML (8-252); GLOMERULAR FILTRATION RATE > 60.0 (>39); GLUCOSE, FASTING 101 MG/DL (70-100); NT-PRO BNP 245 PG/ML (<125); POTASSIUM SERUM 4.4 MEQ/L (3.5-5.1); SODIUM LEVEL 142 MEQ/L (136-145); TOTAL PROTEIN 6.8 GM/DL (6.4-8.2)
[2020-04-21 11:58] LABS: PTH INTACT 23.9 PG/ML (18.5-88.0); TOTAL 25(OH) VITAMIN D 66.1 NG/ML (30.0-100.0); VITAMIN B12 LEVEL 566 PG/ML (247-911)
== END ==
LOC: M SFHCPLAZ 08:05
PROVIDERS: ATTEND Family Medicine
DX: I10 Essential (primary) hypertension (principal); E78.2 Mixed hyperlipidemia; E53.8 Deficiency of other specified B group vitamins; E11.9 Type 2 diabetes mellitus without complications; D50.9 Iron deficiency anemia, unspecified

== ENCOUNTER → 2020-05-11 | Outpatient (CLI) | payer MEDICARE, OTHER ==
--- NOTE | 2020-05-11 14:00 | REPPI ---
INDICATION: THORACIC SPONDYLOSIS. COMPARISON: Comparison thoracic spine radiographs June 07, 2019.. TECHNIQUE: Three views. FINDINGS: Thoracic vertebral body heights are preserved. There is mild disc degenerative disc disease in the midthoracic spine unchanged from the June 07, 2019 prior radiographs. No fracture or collapse is seen. There are degenerative disc changes at C5-6 and C6-7 in the cervical spine visible on swimmer's lateral view. Pedicles and posterior elements are intact. No paravertebral soft tissue mass is seen. IMPRESSION: Degenerative spondylosis changes as above radiographically stable from June 07, 2019 prior study. No acute bony abnormality is appreciated. <Electronically signed by Ghassan Parra > 05/11/20 9205
== END ==
LOC: M PLAIMG 09:31
PROVIDERS: ATTEND Family Medicine
DX: M47.814 Spondylosis without myelopathy or radiculopathy, thoracic region (principal); M50.322 Other cervical disc degeneration at C5-C6 level; M50.323 Other cervical disc degeneration at C6-C7 level
CPT/HCPCS: 72072; G0463

== ENCOUNTER → 2020-05-21 | Outpatient (CLI) | payer MEDICARE, OTHER ==
[~2020-05-21] MED LIST changes: +GASTROGRAFIN SOLUTION 30ML (Q9963) As Ordered ONE; +ISOVUE-370 76% 100ML VIAL As Ordered ONE
--- NOTE | 2020-05-22 05:47 | REP ---
INDICATION: RUQ PAIN. COMPARISON: None TECHNIQUE: Axial contrast-enhanced images from the lung bases to the pubic symphysis using oral and 100 cc Isovue 370 intravenous contrast material. Precontrast and delayed images of the abdomen along with coronal and sagittal reformations obtained.. This CT examination was performed using the following dose reduction techniques: Automated exposure control, adjustment of mA and/or kv according to the patient's size, and the use of iterative reconstruction technique. FINDINGS: Lung bases demonstrate chronic age-related interstitial and emphysematous changes. Small focal area of linear scarring at the right base noted. Visualized portions of the heart and pericardium are normal. Liver includes multiple benign hepatic cysts up to 2.4 cm. Spleen, pancreas, gallbladder, bilateral adrenal glands and kidneys are normal. Few scattered small subcentimeter renal cysts for incidentally noted. The enteric system including stomach, small, and large bowel appears normal. No evidence for obstruction or acute inflammatory process. Scattered colonic diverticula noted without acute diverticulitis.. Pelvis demonstrates normal bladder and uterus with small partially calcified myomatous changes. 4.5 cm simple appearing right ovarian cyst noted. No ascites. No free air. No intraperitoneal or retroperitoneal adenopathy. Abdominal aorta and vasculature appear normal. Musculoskeletal structures are intact and without acute osseous abnormality. IMPRESSION: No acute abdominopelvic pathology appreciated. Benign hepatic and few renal cysts noted. Subtle myomatous changes to the uterus and 4.5 cm simple right ovarian cyst. <Electronically signed by Ravi Coburn > 05/22/20 0519
== END ==
LOC: M RAD 16:47
PROVIDERS: ATTEND Family Medicine
DX: N28.1 Cyst of kidney, acquired (principal); N83.201 Unspecified ovarian cyst, right side; R10.11 Right upper quadrant pain
CPT/HCPCS: 74178; Q9963; Q9967

== ENCOUNTER → 2020-05-22 | Outpatient (CLI) | payer MEDICARE, OTHER ==
[~2020-05-22] MED LIST changes: -GASTROGRAFIN SOLUTION 30ML (Q9963) As Ordered ONE; -ISOVUE-370 76% 100ML VIAL As Ordered ONE
--- NOTE | 2020-05-22 12:57 | REP ---
INDICATION: R10.2 PELVIC PAIN,Z80.41 FM HX OVARY CA. COMPARISON: Comparison study June 19, 2013.. TECHNIQUE: Transabdominal and transvaginal scanning were performed. FINDINGS: Uterine dimensions are normal at 5.3 x 2.5 by 3.9 cm. Endometrial echo is 0.2 cm thick and centrally placed. No free fluid is seen in the cul-de-sac. Visualized bladder tran are smooth. The uterus is retroverted. There is a centrally calcified fibroid in the uterus 2.1 x 1.5 x 1.6 cm. A small quantity of fluid is seen in the endometrial echo. The right ovary has dimensions of 4.6 x 3.4 x 4.1 cm. There is a 4.3 x 3.2 x 3.6 cm septated cystic lesion in the right ovary. No soft tissue nodule is seen. No cul-de-sac fluid is noted. The left ovary dimensions are normal as well at 1.5 x 1.3 x 1.1 cm. There are punctate calcifications visible in the left ovary which are felt to be dystrophic. IMPRESSION: Small fibroid uterus. 4.3 cm septated cystic lesion right ovary.. This right ovarian cystic lesion is little larger than it was on the 2013 study when it measured 2.9 x 2.6 x 1.9 cm. <Electronically signed by Ghassan Parra > 05/22/20 2250
== END ==
LOC: M WHC 09:39
PROVIDERS: ATTEND Nurse Practitioner Family
DX: R10.2 Pelvic and perineal pain (principal); Z80.41 Family history of malignant neoplasm of ovary

== ENCOUNTER → 2020-09-14 | Outpatient (CLI) | payer MEDICARE, OTHER ==
--- NOTE | 2020-09-14 09:20 | REPMRS ---
Patient History The patient states she has not had a clinical breast exam in over a year. Patient is postmenopausal and has history of other cancer at age 61. Family history of ovarian cancer at age 53 in mother. 2 benign stereotatic breast biopsies of the right breast, 2008. Benign excisional biopsy of the left breast, 1976. No Hormone Replacement Therapy Patient states no breast complaints today. Patient has signed MRS History Sheet. Digital Woman Screen Mammo: September 14, 2020 - Exam #: [id number] Bilateral CC and MLO view(s) were taken. Technologist: Teagan Huang, Technologist Prior study comparison: September 12, 2019, bilateral digital woman screen mammo performed at [facility]. July 03, 2018, bilateral digital woman screen mammo performed at [facility]. FINDINGS: There are scattered fibroglandular densities. Screening. Digital screening (2D) mammography was performed bilaterally in the CC and MLO projections. Additionally, breast tomosynthesis (3D mammography) was performed bilaterally in the CC and MLO projections. Todays exam was compared to the prior exam/exams. By history, the patient has no complaints of a palpable breast abnormality or other significant breast complaints. The breasts are unchanged in size and shape. There are no matt-soft tissue densities or spiculated masses. There is no internal architectural distortion. Once again, stable benign appearing calcifications are seen.There are no suspicious matt-calcific clusters. Skin thickening or nipple retraction is not present. IMPRESSION: BI-RADS Category 2- Benign Findings. There is no evidence of malignant alteration of the breasts. Followup examination recommended in one year. The Volpara volumetric breast density category is B, there are scattered areas of fibroglandular density. This mammogram was read with the assistance of Press-sense,an FDA approved computer aided detection system for mammography. The lifetime Tyrer-Cuzick score is 3.8 % Negative x-ray reports should not delay surgical consultation if a dominant or clinically suspicious mass is present. Not all breast cancers can be identified by mammography. Therefore, we recommend that you continue to perform regular breast self-examination and physical examination and then promptly contact your physician of any concerns or changes. Adenosis and dense breasts may obscure an underlying neoplasm. Assessment: BI-RADS/ACR category 2 mammogram. Benign Findings. Recommendation Routine screening mammogram of both breasts in 1 year. Electronically Signed By: Delvin Boykin DO 09/14/20 [id number]
== END ==
LOC: M WHC 08:16
PROVIDERS: ATTEND Family Medicine
DX: Z12.31 Encounter for screening mammogram for malignant neoplasm of breast (principal); Z80.41 Family history of malignant neoplasm of ovary; Z85.9 Personal history of malignant neoplasm, unspecified; R92.1 Mammographic calcification found on diagnostic imaging of breast

== ENCOUNTER → 2020-09-14 | Outpatient (CLI) | payer MEDICARE, OTHER ==
--- NOTE | 2020-09-14 09:48 | REP ---
INDICATION: N83.291 COMPLEX CYST OF RT OVARY. COMPARISON: 05/22/2020. TECHNIQUE: Transabdominal and transvaginal scanning performed. FINDINGS: Uterine dimensions are 6.2 x 3.0 x 3.8 cm. Endometrial echo is 2 mm in AP dimension and centrally placed. There is a small amount of endometrial fluid. Partially calcified fibroid is seen anteriorly in the uterus measuring 1.9 x 1.4 x 1.4 cm. Another fibroid in the left lower uterine segment measures 1 cm in maximum diameter. The bladder measures 8.6 x 4.3 x 9.6cm. The right ovary has dimensions of 4.6 x 3.1 x 3.6 cm. It's Doppler flow is normal with a resistive index of 0.76. The left ovary dimensions are 1.3 x 0.6 x 1.1 cm. It's Doppler flow was normal with resistive index of 0.76. Once again there is a cyst in the right ovary which is predominantly anechoic but contains a thick septation. It measures 4.5 x 2.8 x 3.3 cm. No free fluid is seen in the cul-de-sac. IMPRESSION: Essentially stable right ovarian cyst containing a thickened septation. Cystadenoma or cystadenocarcinoma are in the differential diagnosis. <Electronically signed by Bjorn Pope > 09/14/20 [id number]
== END ==
LOC: M WHC 07:55
PROVIDERS: ATTEND Nurse Practitioner Family
DX: N83.291 Other ovarian cyst, right side (principal); Z12.31 Encounter for screening mammogram for malignant neoplasm of breast; Z80.41 Family history of malignant neoplasm of ovary; Z85.9 Personal history of malignant neoplasm, unspecified; R92.1 Mammographic calcification found on diagnostic imaging of breast

== ENCOUNTER → 2020-09-14 | Outpatient (REF) | payer MEDICARE, OTHER | LOC: M SFHCWAGY 13:53 → M PLALAB 13:53 | PROVIDERS: ATTEND Nurse Practitioner Family | DX: N83.291 Other ovarian cyst, right side (principal) ==

== ENCOUNTER → 2020-10-07 | Outpatient (CLI) | payer MEDICARE, OTHER ==
[2020-10-07 13:50] LABS: BASO % 0.5 % (0.0-1.0); EOS # 0.1 10^3/uL (0.0-0.5); EOS % 0.9 % (0.0-3.0); HEMATOCRIT 40.9 % (36.0-47.0); HEMOGLOBIN 12.9 g/dl (12.0-15.5); LYMPH # 1.8 10^3/uL (1.5-5.0); LYMPH % 22.9 % (24.0-44.0); MEAN CORPUSCULAR HEMOGLOBIN 28.4 pg (27.0-33.0); MEAN CORPUSCULAR HGB CONC 31.5 g/dl (32.0-36.5); MEAN CORPUSCULAR VOLUME 89.9 fl (80.0-96.0); MONO # 0.6 10^3/uL (0.0-0.8); MONO % 8.4 % (2.0-8.0); NEUTROPHILS # 5.1 10^3/uL (1.5-8.5); NEUTROPHILS % 66.9 % (36.0-66.0); PLATELET COUNT, AUTOMATED 306 10^3/uL (150-450); RED BLOOD COUNT 4.55 10^6/uL (4.00-5.40); WHITE BLOOD COUNT 7.6 10^3/uL (4.0-10.0)
[2020-10-07 14:16] LABS: HEMOGLOBIN A1c 5.9 %
[2020-10-07 14:29] LABS: ALBUMIN 3.5 GM/DL (3.2-5.2); ALT/SGPT 25 U/L (12-78); BILIRUBIN,TOTAL 0.7 MG/DL (0.2-1.0); BLOOD UREA NITROGEN 11 MG/DL (7-18); CALCIUM LEVEL 8.6 MG/DL (8.8-10.2); CARBON DIOXIDE LEVEL 26 MEQ/L (21-32); CHLORIDE LEVEL 107 MEQ/L (98-107); CHOLESTEROL LEVEL 135 MG/DL (<200); CREATININE FOR GFR 0.72 MG/DL (0.55-1.30); FREE T4 1.17 NG/DL (0.76-1.46); GLOMERULAR FILTRATION RATE > 60.0 (>39); GLUCOSE, FASTING 87 MG/DL (70-100); HDL CHOLESTEROL 78 MG/DL (>40); LDL CHOLESTEROL 46 MG/DL (<100); NON-HDL-C 57 MG/DL; POTASSIUM SERUM 4.4 MEQ/L (3.5-5.1); SODIUM LEVEL 140 MEQ/L (136-145); TOTAL PROTEIN 6.7 GM/DL (6.4-8.2); TRIGLYCERIDES LEVEL 56 MG/DL (<150)
[2020-10-07 14:39] LABS: MALB URINE SIEMENS 18.4 MG/L; MAU/CREAT RATIO 17.5 MCG/MG (0.0-30.0)
== END ==
LOC: M PLALAB 08:11
PROVIDERS: ATTEND Family Medicine
DX: E11.9 Type 2 diabetes mellitus without complications (principal); D50.9 Iron deficiency anemia, unspecified

== ENCOUNTER → 2021-01-01 | Outpatient (CLI) | payer MEDICARE, OTHER ==
--- NOTE | 2021-01-07 13:52 | REPVR ---
PROCEDURE INFORMATION: Exam: MRA Head Without Contrast; Arteriography Exam date and time: 01/01/2021 10:13 AM Age: 70 years old Clinical indication: Condition or disease; Aneurysm, cerebral; Additional info: Cerbral aneursym non ruptured TECHNIQUE: Imaging protocol: Magnetic resonance angiography head without contrast. Exam focused on the arteries. COMPARISON: 1. MRA BRAIN W/O CONTRAST 12/07/2018 7:56 AM 2. MRA BRAIN W/O CONTRAST 12/14/2016 10:00:17 AM FINDINGS: ANTERIOR CIRCULATION: Right internal carotid artery: Patent. The right ICA appears mildly ectatic in the cavernous segment, as before. No saccular aneurysm. Right middle cerebral artery: No occlusion or significant stenosis. No aneurysm. Right anterior cerebral artery: No occlusion or significant stenosis. No aneurysm. Left internal carotid artery: The distal cervical ICA demonstrates luminal irregularity. The distal cervical left ICA appears ectatic measuring approximately 7 mm in diameter compared to a proximal diameter of 4 mm. Distal to the point of ectasia, there is rapid tapering of luminal diameter which appears severely attenuated at the junction of the distal cervical and vertical petrous tight segments, image 33 of series 301. These findings are unchanged. The intracranial left ICA appears patent elsewhere without evidence of saccular aneurysm. Left middle cerebral artery: No occlusion or significant stenosis. No aneurysm. Left anterior cerebral artery: Patent. 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 Anterior communicating artery: Stable appearance of the anterior communicating artery which may be fenestrated. 5-6 mm outpouching is suggested along the A-comm in keeping with the provided history of aneurysm, stable compared to prior studies. 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 Patent. No aneurysm. Left vertebral artery: The left vertebral artery is dominant. Patent. No aneurysm. Basilar artery: No occlusion or significant stenosis. No aneurysm. Right posterior cerebral artery: No occlusion or significant stenosis. No aneurysm. Left posterior cerebral artery: No occlusion or significant stenosis. No aneurysm. IMPRESSION: 1. 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 2. Stable, abnormal appearance of the distal cervical left ICA at junction with the vertical petrous segment. Findings could reflect atherosclerosis or the sequela of a remote dissection. Electronically signed by: Teagan Ng On 01/07/2021 13:52:17 PM
== END ==
LOC: M PLAIMG 09:38
PROVIDERS: ATTEND Family Medicine
DX: I67.1 Cerebral aneurysm, nonruptured (principal)

== ENCOUNTER → 2021-01-29 | Outpatient (CLI) | payer MEDICARE, OTHER ==
[~2021-01-29] MED LIST changes: +CYAN500T14 PO; +D31000TA2 PO; +TELM1TAB33 PO
== END ==
LOC: M LABSMTC 09:37
PROVIDERS: ATTEND Anesthesiology
DX: Z01.812 Encounter for preprocedural laboratory examination (principal); Z20.822 Contact with and (suspected) exposure to COVID-19

== ENCOUNTER 2021-02-03 07:06 | Day surgery (SDC) | payer MEDICARE, OTHER ==
[~2021-02-03] VITALS: Ht 162.6 cm; Wt 51.3 kg
[~2021-02-03 07:06] MED LIST changes: +NS 1,000 ML IV ONE
--- OUTSIDE RECORDS SUMMARY | 2021-02-03 07:12 | CCD | Continuity of Care Document ---
Author Author Lisa CH M.D. Organization Unknown Address [address] [place] [id number] Phone [phone] Care Team Providers Care Cyber Incident Analyst Name Role Phone Graham Sales MD AUTM [phone] Problems Active Problems Provider Date Screening for malignant neoplasm of colon Mario chilel M.D. Onset: 12/21/2015 Social History Type Date Description Comments Sex Unknown ETOH Use Occasionally Tobacco Use Start: Unknown End: Unknown Patient is a former smoker Allergies, Adverse Reactions, Alerts Description No Known Drug Allergies Medications Active Medications SIG Qnty Indications Ordering Provide r Date Sutab [id number] Tablets as directed 1box Mario Ch M.D. 12/03/2020 Onetouch Ultra Blue Strips Graham Sales MD Onetouch Delica Lancets Extra Fine 33G Misc Graham Sales MD Vitamin D3 2000Unit Capsules 1 by mouth every day Unknown Vitamin B12 1000mcg Tablets ER 1 by mouth every day Unknown Calcium 600+D Tablets Unknown Metformin HCL 850mg Tablets Graham Sales MD Atenolol 100mg Tablets Graham Sales MD Januvia 100mg Tablets Graham Sales MD Amlodipine Besylate 5mg Tablets Graham Sales MD Telmisartan 20mg Tablets Graham Sales MD Atorvastatin Calcium 40mg Tablets Graham Sales MD Aspirin Ec Low Dose 81mg Tablets DR Mcneil Immunizations Description No Information Available Vital Signs Date Vital Result Comment 12/03/2020 3:49pm Height 64 inches 5'4" Weight 119.00 lb BP Systolic 146 mmHg BP Diastolic 73 mmHg Heart Rate 81 /min BMI (Body Mass Index) 20.4 kg/m2 Weight 53.978 kg Body Temperature 95.9 F 12/17/2015 2:29pm Height 60 inches 5'0" Weight 122.00 lb BP Systolic 127 mmHg BP Diastolic 81 mmHg Heart Rate 80 /min BMI (Body Mass Index) 23.8 kg/m2 Weight 55.339 kg Results Description No Information Available Procedures Description No Information Available Medical Devices Description No Information Available Encounters Description No Information Available Assessments Date Code Description Provider 12/03/2020 Z86.010 History of adenomatous polyp of colon Mario Ch M.D. Plan of Treatment Future Appointment(s):* 02/03/2021 9:30 am - Mario Ch M.D. at Main Office 12/03/2020 - Mario Ch M.D.* Z86.010 History of adenomatous polyp of colon* Comments:* 70 yo wf who presents for colon cancer screening. Last scope was in 2015. No c/o abdominal pain, weight loss, or change in bowel habits. No rectal bleeding. Experiencing no pain. Colorectal screen due to patient being at least the age fifty or greater. Does not experience rectal bleeding. Patient's BM frequency is normal. Stool pattern is regular, no concerns. Stools are normal. No aggravating factors. No alleviating factors. Denies associated appetite changes, dysphagia, indigestion, nausea, reflux, regurgitation, vomiting and weight change. Plan:1.Schedule patient for Colonoscopy. 2. Informed consent given.3. Advised to stop asa, plavix,and anticoagulation 3 to 7 days prior to the procedures. Functional Status Description No Information Available Mental Status Description No Information Available Referrals Description No Information Available
--- OUTSIDE RECORDS SUMMARY | 2021-02-03 07:12 | CCD ---
Author Author [facility] Organization [facility] Address Unknown Phone Unavailable Care Team Providers Care Billing Auditor Name Role Phone Jaimie Ch MD Unavailable Unavailable Jaimie Ch MD Unavailable Unavailable Jaimie Ch MD Unavailable Unavailable Jaimie Ch MD Unavailable Unavailable Jaimie Ch MD Unavailable Unavailable Jaimie Ch MD Unavailable Unavailable Jaimie Ch MD Unavailable Unavailable Jaimie Ch MD Unavailable Unavailable Jaimie Ch MD Unavailable Unavailable Jaimie Ch MD Unavailable Unavailable Jaimie Ch MD Unavailable Unavailable Jaimie Ch MD Unavailable Unavailable Jaimie Ch MD Unavailable Unavailable Jaimie Ch MD Unavailable Unavailable Jaimie Ch MD Unavailable Unavailable Jaimie Ch MD Unavailable Unavailable Jaimie Ch MD Unavailable Unavailable Jaimie Ch MD Unavailable Unavailable Jaimie Ch MD Unavailable Unavailable Jaimie Ch MD Unavailable Unavailable Jaimie Ch MD Unavailable Unavailable Jaimie Ch MD Unavailable Unavailable Jaimie Ch MD Unavailable Unavailable Jaimie Ch MD Unavailable Unavailable Jaimie Ch MD Unavailable Unavailable Jaimie Ch MD Unavailable Unavailable Jaimie Ch MD Unavailable Unavailable Jaimie Ch MD Unavailable Unavailable Jaimie Ch MD Unavailable Unavailable Jaimie Ch MD Unavailable Unavailable Jaimie Ch MD Unavailable Unavailable Jaimie Ch MD Unavailable Unavailable Jaimie Ch MD Unavailable Unavailable Jaimie Ch MD Unavailable Unavailable Jaimie Ch MD Unavailable Unavailable Jaimie Ch MD Unavailable Unavailable Jaimie Ch MD Unavailable Unavailable Jaimie Ch MD Unavailable Unavailable Jaimie Ch MD Unavailable Unavailable Jaimie Ch MD Unavailable Unavailable Jaimie Ch MD Unavailable Unavailable Jaimie Ch MD Unavailable Unavailable Jaimie Ch MD Unavailable Unavailable Jaimie Ch MD Unavailable Unavailable Jaimie Ch MD Unavailable Unavailable Jing, Jaimie Martin MD Unavailable Unavailable Jaimie Ch MD Unavailable Unavailable Jaimie Ch MD Unavailable Unavailable Jing, Jaimie Martin MD Unavailable Unavailable Jing, Jaimie Martin MD Unavailable Unavailable Kauffman, Ebonie Viviana PA Unavailable Unavailable Kauffman, Ebonie Viviana PA Unavailable Unavailable Kauffman, Ebonie Viviana PA Unavailable Unavailable Kauffman, Ebonie Viviana PA Unavailable Unavailable Kauffman, Ebonie Viviana PA Unavailable Unavailable Kauffman, Ebonie Viviana PA Unavailable Unavailable Kauffman, Ebonie Viviana PA Unavailable Unavailable Kauffman, Ebonei Viviana PA Unavailable Unavailable Kauffman, Ebonie Viviana PA Unavailable Unavailable Kauffman, Ebonie Viviana PA Unavailable Unavailable Kerman, Na COLD MOLDING PRESS OPERATOR Unavailable Unavailable Kerman, Na COLD MOLDING PRESS OPERATOR Unavailable Unavailable Kerman, Na COLD MOLDING PRESS OPERATOR Unavailable Unavailable Kerman, Na COLD MOLDING PRESS OPERATOR Unavailable Unavailable Kerman, Na COLD MOLDING PRESS OPERATOR Unavailable Unavailable Kerman, Na COLD MOLDING PRESS OPERATOR Unavailable Unavailable Kerman, Na COLD MOLDING PRESS OPERATOR Unavailable Unavailable Kerman, Na COLD MOLDING PRESS OPERATOR Unavailable Unavailable Kerman, Na COLD MOLDING PRESS OPERATOR Unavailable Unavailable Kerman, Na COLD MOLDING PRESS OPERATOR Unavailable Unavailable Kerman, Na COLD MOLDING PRESS OPERATOR Unavailable Unavailable Kerman, Na COLD MOLDING PRESS OPERATOR Unavailable Unavailable Kerman, Na COLD MOLDING PRESS OPERATOR Unavailable Unavailable Kerman, Na COLD MOLDING PRESS OPERATOR Unavailable Unavailable Kerman, Na COLD MOLDING PRESS OPERATOR Unavailable Unavailable Kerman, Na COLD MOLDING PRESS OPERATOR Unavailable Unavailable Kerman, Na COLD MOLDING PRESS OPERATOR Unavailable Unavailable Kerman, Na COLD MOLDING PRESS OPERATOR Unavailable Unavailable Kerman, Na COLD MOLDING PRESS OPERATOR Unavailable Unavailable Kerman, Na COLD MOLDING PRESS OPERATOR Unavailable Unavailable Kerman, Na COLD MOLDING PRESS OPERATOR Unavailable Unavailable Kerman, Na COLD MOLDING PRESS OPERATOR Unavailable Unavailable Kerman, Na COLD MOLDING PRESS OPERATOR Unavailable Unavailable Kerman, Na COLD MOLDING PRESS OPERATOR Unavailable Unavailable Kerman, Na COLD MOLDING PRESS OPERATOR Unavailable Unavailable Kerman, Na COLD MOLDING PRESS OPERATOR Unavailable Unavailable Kerman, Na COLD MOLDING PRESS OPERATOR Unavailable Unavailable Kerman, Na COLD MOLDING PRESS OPERATOR Unavailable Unavailable Kerman, Na COLD MOLDING PRESS OPERATOR Unavailable Unavailable Kerman, Na COLD MOLDING PRESS OPERATOR Unavailable Unavailable Kerman, Na COLD MOLDING PRESS OPERATOR Unavailable Unavailable Kerman, Na COLD MOLDING PRESS OPERATOR Unavailable Unavailable Kerman, Na COLD MOLDING PRESS OPERATOR Unavailable Unavailable Kerman, Na COLD MOLDING PRESS OPERATOR Unavailable Unavailable Kerman, Na COLD MOLDING PRESS OPERATOR Unavailable Unavailable Kerman, Na COLD MOLDING PRESS OPERATOR Unavailable Unavailable Re-disclosure Warning The records that you are about to access may contain information from federally-assisted alcohol or drug abuse programs. If such information is present, then the following federally mandated warning applies: This information has been disclosed to you from records protected by federal confidentiality rules (42 CFR part 2). The federal rules prohibit you from making any further disclosure of this information unless further disclosure is expressly permitted by the written consent of the person to whom it pertains or as otherwise permitted by 42 CFR part 2. A general authorization for the release of medical or other information is NOT sufficient for this purpose. The Federal rules restrict any use of the information to criminally investigate or prosecute any alcohol or drug abuse patient.The records that you are about to access may contain highly sensitive health information, the redisclosure of which is protected by Article 27-F of the [facility] Public Health law. If you continue you may have access to information: Regarding HIV / AIDS; Provided by facilities licensed or operated by the [facility] Office of Mental Health; or Provided by the [facility] Office for People With Developmental Disabilities. If such information is present, then the following [facility] mandated warning applies: This information has been disclosed to you from confidential records which are protected by state law. State law prohibits you from making any further disclosure of this information without the specific written consent of the person to whom it pertains, or as otherwise permitted by law. Any unauthorized further disclosure in violation of state law may result in a fine or mcfp sentence or both. A general authorization for the release of medical or other information is NOT sufficient authorization for further disc losure. Family History Family Member Name Family Member Gender Family Member Status Date o f Status Description Data Source(s) Unknown Unknown Problem MEDENT ([facility]) Unknown Female Problem MEDENT ([facility]) Unknown Female Problem MEDENT ([facility]) Encounters Encounter Providers Location Date Indications Data Source(s ) Unknown [address] [place] [address] 12/23/2020 12:00:00 AM EDT eCW1 ([facility]) Outpatient Attender: Roma WYMAN Main Office 12/16/2020 08:45:00 AM EDT [facility] Outpatient Attender: Mario Ch MD Main Office 12/03/2020 03:30:00 PM EDT MEDENT ([facility]) [place] [address] [facility] [place] [address] 10/12/2020 12:00:00 AM EDT eCW1 ([facility]) Unknown [address] [facility] [facility] [facility] [address] [place] [address] 06/23/2020 12:00:00 AM EDT [facility]CW[facility] Unknown [address] [facility] [facility] [place] [address] 05/28/2020 12:00:00 AM EST eCW1 ([facility]) Unknown [address] [facility] [facility] [place] [address] 05/27/2020 12:00:00 AM EST eCW1 ([facility]) Unknown [address] [facility] [facility] [place] [address] 05/11/2020 12:00:00 AM EST eCW1 ([facility]) Outpatient [address] [place] [address] 05/11/2020 12:00:00 AM EST eCW1 ([facility]) Outpatient [address] [place] [address] 05/08/2020 12:00:00 AM EST eCW1 ([facility]) Unknown [address] [place] [address] 03/06/2020 12:00:00 AM EST eCW1 ([facility]) [place] [address] [place] [address] 02/24/2020 12:00:00 AM EST eCW1 ([facility]) Outpatient Attender: Viviana farmer 02/22/2020 08:45:00 AM EST MEDENT ([facility]) Unknown [address] [place] [address] 01/14/2020 12:00:00 AM EDT eCW1 ([facility]) Immunizations Vaccine Date Status Description Data Source(s) COVID-19 VACC, MRNA(PFIZER)/PF 01/09/2021 12:00:00 AM EDT completed [facility] COVID-19 VACCINE Pfizer 01/09/2021 12:00:00 AM EDT completed [facility] Vaccine Series Complete: YESThis Data wa s Submitted to [facility]. COVID-19 dose #2 given elsewhere Unspecified 05/18/2020 11:1 1:00 AM EST completed eCW1 ([facility]) COVID-19 dose #2 given elsewhere Unspecified 05/18/2020 11:1 1:00 AM EST completed eCW1 ([facility]) COVID-19 VACCINE Pfizer 05/18/2020 12:00:00 AM EST completed [facility] Vaccine Series Complete: YESThis Data wa s Submitted to [facility]. COVID-19 VACCINE Pfizer 04/27/2020 12:00:00 AM EST completed [facility] Vaccine Series Complete: NOThis Data was Submitted to [facility]. COVID-19 dose #1 given elsewhere Unspecified 04/20/2020 05:4 8:00 PM EST completed eCW1 ([facility]) COVID-19 dose #1 given elsewhere Unspecified 04/20/2020 05:4 8:00 PM EST completed eCW1 ([facility]) COVID-19 dose #1 given elsewhere Unspecified 04/20/2020 05:4 8:00 PM EST completed eCW1 ([facility]) COVID-19 dose #1 given elsewhere Unspecified 04/20/2020 05:4 8:00 PM EST completed eCW1 ([facility]) COVID-19 dose #1 given elsewhere Unspecified 04/20/2020 05:4 8:00 PM EST completed eCW1 ([facility]) COVID-19 dose #1 (given elsewhere) Unspecified 04/20/2020 05 :48:00 PM EST completed eCW1 ([facility]) COVID-19 dose #1 (given elsewhere) Unspecified 04/20/2020 05 :48:00 PM EST completed eCW1 ([facility]) Influenza Virus Vaccine, Quadrivalent (Cciiv4), Derive d From Cell 02/22/2020 10:53:00 AM EST completed MEDENT ([facility]) Medications Medication Brand Name Start Date Product Form Dose Route Admi nistrative Instructions Pharmacy Instructions Status Indications Reaction Description Data Source(s) Sutab Sutab 12/03/2020 12:00:00 AM EDT active MEDENT ([facility]) celecoxib 200 MG Oral Capsule Celecoxib 200 MG Celecoxib 200 MG 10/12/2020 12:00:00 AM EDT 1.0 {capsule_with_food} active Celecoxib 200 MG eCW1 ([facility]) celecoxib 200 MG Oral Capsule Celecoxib 200 MG Celecoxib 200 MG 10/12/2020 12:00:00 AM EDT 1.0 {capsule_with_food} active Celecoxib 200 MG eCW1 ([facility]) Insurance Providers Payer name Policy type / Coverage type Policy ID Covered democrat ID Covered democrat's relationship to light Policy Light Plan Information [id number] [employer] [id number] SP [id number] [facility] [id number] SP [id number] MEDICARE [id number] A MEDICARE [id number] SP [id number] [id number] Medicare Part B [facility] Other 0 [id number] Self 0 R [facility] [id number] SP [id number] MEDICARE C [id number] S [id number] W19 MEDICARE [id number] SP [id number] W19 ANSI-Commercial [id number] ANSI-Commercial [id number] ANSI-Medicare Part B [id number] ANSI-Commercial [id number] ANSI-Commercial [id number] ANSI-Medicare Part B [id number] MEDICARE [id number] SP [id number] A [facility] [id number] SP [id number] ANSI-Commercial [id number] ANSI-Commercial [id number] ANSI-Medicare Part B [id number] ANSI-Medicare Part B [id number] ANSI-Commercial [id number] ANSI-Commercial [id number] ANSI-Commercial [id number] ANSI-Medicare Part B [id number] ANSI-Commercial [id number] ANSI-Medicare Part B [id number] [employer] Medigap Part B [id number] Self [id number] Medicare [place] Medicare Primary [id number] Self [id number] [employer] PPO O [id number] S [id number] MEDICARE C [id number] S [id number] A [employer] Medigap Part B [id number] Self [id number] Medicare Natl Gov't Servi Medicare Primary [id number] Self [id number] [employer] PPO O [id number] S [id number] [employer] [id number] SP [id number] [employer] Commercial [id number] Self Medicare [facility] Medicare Primary [id number] Self [employer] Medigap Part B [id number] Self Medicare [place] Medicare Primary [id number] Self [employer] [id number] SP [id number] MEDICARE [id number] SP [id number] UMR [facility] [id number] SP [id number] [employer] [place] Other 0 [id number] Self 0 UMR [facility] [id number] SP [id number] R [facility] [id number] SP [id number] UMR O [id number] S [id number] Problems, Conditions, and Diagnoses Code Display Name Description Problem Type Effective Dates Data Source(s) N83.201 [id number] Cyst of right ovary Problem 10/12/2020 12:00 :00 AM EDT eCW1 ([facility]) M47.814 [id number] Thoracic spondylosis Problem 05/11/2020 12:0 0:00 AM EST eCW1 ([facility]) Surgeries/Procedures Procedure Description Date Indications Data Source(s) DESTRUCTION PREMALIGNANT LESION 1ST 12/16/2020 12:00:0 0 AM EDT MEDENT ([facility]) DESTRUCTION PREMALIGNANT LESION 2-14 EA 12/16/2020 12: 00:00 AM EDT MEDENT ([facility]) OFFICE OUTPATIENT VISIT 25 MINUTES 12/16/2020 12:00:00 AM EDT MEDENT ([facility]) OFFICE OUTPATIENT NEW 30 MINUTES 12/03/2020 12:00:00 A M EDT MEDENT ([facility]) COLONOSCOPY W/BIOPSY SINGLE/MULTIPLE 05/11/2020 12:00: 00 AM EST eCW1 ([facility]) Results ID Date Data Source [id number] 01/29/2021 09:40:00 AM EDT [facility] Name Value Range Interpretation Code Description Data Annie rce(s) Supporting Document(s) SARS-CoV-2 (COVID-19) RNA [Presence] in Respiratory specimen by CHANTAL with probe detection Not Detected [facility] This lab was ordered by [facility] and reported by [employer]. ID Date Data Source PLZ SPINE THORACIC 3 VIEWS 05/11/2020 12:00:00 AM EST eCW1 ( [facility]) Name Value Range Interpretation Code Description Data Annie rce(s) Supporting Document(s) PLZ SPINE THORACIC 3 VIEWS eCW 1 ([facility]) Procedure Social History Code Duration Value Status Description Data Source(s ) Smoking 05/26/2020 08:59:53 AM EST Ex-smoker (finding) complet ed Ex-smoker (finding) DWAYNE ([facility]) Vital Signs ID Date Data Source UNK Name Value Range Interpretation Code Description Data Source(s) Systolic blood pressure 110 mm[Hg] 110 mm[Hg] M EDENT ([facility]) Diastolic blood pressure 76 mm[Hg] 76 mm[Hg] MEDENT ([facility]) Body weight 120.00 [lb_av] 120.00 [lb_av] MEDEN T ([facility]) Body height 64 [in_i] 64 [in_i] MEDENT ([facility]) 5'4" Body mass index (BMI) [Ratio] 20.6 kg/m2 20.6 k g/m2 MEDENT ([facility]) Body height 64 [in_i] 64 [in_i] MEDENT ([facility]) 5'4" Body weight 119.00 [lb_av] 119.00 [lb_av] MEDEN T ([facility]) Systolic blood pressure 146 mm[Hg] 146 mm[Hg] M EDENT ([facility]) Diastolic blood pressure 73 mm[Hg] 73 mm[Hg] MEDENT ([facility]) Heart rate 81 /min 81 /min MEDENT ([facility]) Body mass index (BMI) [Ratio] 20.4 kg/m2 20.4 k g/m2 MEDENT ([facility]) Body weight 53.978 kg 53.978 kg [facility] ([facility]) Body temperature 95.9 [degF] 95.9 [degF] MEDENT ([facility]) Body weight 121 [lb_av] 121 [lb_av] eCW1 (On [facility] of [facility]) Body height 64 [in_i] 64 [in_i] eCW1 ([facility]) Body mass index (BMI) [Ratio] 20.77 kg/m2 20.77 kg/m2 eCW1 ([facility]) Heart rate 88 /min 88 /min eCW1 ([facility]) Respiratory rate 18 /min 18 /min eCW1 ([facility]) Body temperature 97.9 [degF] 97.9 [degF] eCW1 ( [facility]) Systolic blood pressure 130 mm[Hg] 130 mm[Hg] e CW1 ([facility]) Diastolic blood pressure 78 mm[Hg] 78 mm[Hg] eCW1 ([facility]) Systolic blood pressure 122 mm[Hg] 122 mm[Hg] M EDENT ([facility]) Diastolic blood pressure 58 mm[Hg] 58 mm[Hg] MEDENT ([facility]) Body weight 120.00 [lb_av] 120.00 [lb_av] MEDEN T ([facility]) Body temperature 98.6 [degF] 98.6 [degF] MEDENT ([facility]) Body weight 121.2 [lb_av] 121.2 [lb_av] eCW1 ([facility]) Body height 64 [in_i] 64 [in_i] eCW1 ([facility]) Body mass index (BMI) [Ratio] 20.80 kg/m2 20.80 kg/m2 eCW1 ([facility]) Heart rate 93 /min 93 /min eCW1 ([facility]) Respiratory rate 20 /min 20 /min eCW1 ([facility]) Body temperature 98.2 [degF] 98.2 [degF] eCW1 ( [facility]) Systolic blood pressure 130 mm[Hg] 130 mm[Hg] e CW1 ([facility]) Diastolic blood pressure 70 mm[Hg] 70 mm[Hg] eCW1 ([facility]) Body weight 121 [lb_av] 121 [lb_av] eCW1 (On license of [facility]) Body weight 54.88 kg 54.88 kg eCW1 ([facility]) Body height 64 [in_i] 64 [in_i] eCW1 ([facility]) Body mass index (BMI) [Ratio] 20.77 kg/m2 20.77 kg/m2 eCW1 ([facility]) Systolic blood pressure 132 mm[Hg] 132 mm[Hg] e CW1 ([facility]) Diastolic blood pressure 96 mm[Hg] 96 mm[Hg] eCW1 ([facility]) Systolic blood pressure 138 mm[Hg] 138 mm[Hg] M EDENT ([facility], [facility]) Diastolic blood pressure 96 mm[Hg] 96 mm[Hg] MEDENT ([facility], [facility]) Heart rate 85 /min 85 /min MEDENT ([facility], [facility]) Respiratory rate 16 /min 16 /min MEDENT ( [facility], [facility]) Oxygen saturation in Arterial blood by [facility]ulse [facility]ximetry 95 % 95 % [facility]) Body temperature 97.1 [degF] 97.1 [degF] MEDENT ([facility], [facility]) Body weight 120.00 [lb_av] 120.00 [lb_av] MEDEN T ([facility], [facility]) Body height 64 [in_i] 64 [in_i] MEDENT ([facility]) 5'4" Body mass index (BMI) [Ratio] 20.6 kg/m2 20.6 k g/m2 MEDENT ([facility]) Patient Treatment Plan of Care Planned Activity Planned Date Details Description Data Source (s) celecoxib 200 MG Oral Capsule 10/12/2020 12:00:00 AM EDT eCW1 ([facility]) celecoxib 200 MG Oral Capsule 10/12/2020 12:00:00 AM EDT eCW1 ([facility])
--- OUTSIDE RECORDS SUMMARY | 2021-02-03 07:12 | CCD ---
Author Author [facility] Organization [facility] Address Unknown Phone Unavailable Care Team Providers Care Supervisor Pipe Manufacture Name Role Phone Graham Sales Unavailable PROBLEMS Type Condition ICD9-CM Code [id number] Code Onset Dates Condition S tatus W/U Status Risk SNOMED Code Notes Problem Essential (primary) hypertension I10 Active conf irmed 72906803 Problem Cerebral aneurysm, nonruptured I67.1 Active confir med 17790204 Problem Vitamin D deficiency, unspecified E55.9 Active con firmed 88491179 Problem Mixed hyperlipidemia E78.2 Active confirmed 079761936 Problem Vitamin B12 deficiency E53.8 Active confirmed 007484524 Problem Breast cancer screening Z12.39 Active confirmed 123096038 Problem H/O adenomatous polyp of colon Z86.010 Active confi rmed 161014534 Problem Thoracic spondylosis M47.814 Active confirmed 096618933 Problem Colon cancer screening Z12.11 Active confirmed 977599763 Problem Cyst of right ovary N83.201 Active confirmed 78224100 Problem Osteopenia M85.80 Active confirmed 436625457 Problem DM w/o complication type II E11.9 Active confirmed 112210248 Problem Fe deficiency anemia D50.9 Active confirmed 95653365 Problem Gilbert disease E80.4 Active confirmed 275 48725 Problem Lumbar spondylosis M47.816 Active confirmed 741603570 ALLERGIES Allergen (clinical drug ingredient) Drug/Non Drug Allergy do cumented on EMR Reaction Allergy Type Onset Date Status naproxen Naprosyn([facility] Code:[address]-81) Hives Drug Allergy Active ENCOUNTERS from 1950 to 2020-12-24 Encounter Location Date Provider Diagnosis [facility] Graham [phone] [place] [address] Dec, Graham Sales Essential (primary) hyperten ajit I10 ; DM w/o complication type II E11.9 and Mixed hyperlipidemia E78.2 IMMUNIZATIONS Vaccine Route Administration Date Status COVID-19 dose #2 given elsewhere Unspecified IM Intramuscular Fe b 2020 Administered COVID-19 dose #1 given elsewhere Unspecified IM Intramuscular Ja n 2020 Administered Influenza 18 yrs & older Flublok Unknown May 17, 2018 Refused SOCIAL HISTORY Sex Assigned At : Social History Observation Description Sex Assigned At Unknown Education: Question Answer Notes Level of Education: College bachelors + 30 Language: Question Answer Notes Languages spoken: Georgian Holiness: Question Answer Notes Holiness No methodist beliefs that would impact health care. Sexual Hx: Question Answer Notes Had sex in the last 12 months (vaginal, oral, or anal)? Yes Have you ever had an STD? No with Men only Use protection? No Alcohol Screening: Question Answer Notes Did you have a drink containing alcohol in the past year? Ye s Points 4 Interpretation Positive How often did you have six or more drinks on one occas ion in the past year? Never (0 points) How many drinks did you have on a typica l day when you were drinking in the past year? 1 or 2 (0 points) How often did you have a drink containing alcohol in t he past year? Four or more times a week (4 points) REASON FOR REFERRAL No Information VITAL SIGNS No information MEDICATIONS Medication SIG (Take, Route, Frequency, Duration) Notes Start Da te End Date Status Losartan Potassium 100 mg 1 tablet Orally Once a day for 90 Active Calcium 600+D High Potency 600-400 MG-UNIT 1 tablet Orally 2 times a day Active Lancets 1 device subcutaneously 3 times a week Active Cyanocobalamin 500 MCG 1 tablet Orally Once a day for 90 day(s) Active Atorvastatin Calcium 40 MG 1 tablet Orally Once a day for 90 day(s) Active Telmisartan 20 MG 2 tablets Orally every morning for 90 day(s) Jun, Active metFORMIN HCl 850 MG 1 tablet with meals by mouth Twice a day for 9 0 day(s) Active Voltaren 1 % as directed Transdermal four times daily for 30 day(s) Active Atenolol 100 mg 1 tablet by mouth Once a day for 90 day(s) Active Aspir-81 81 MG 1 tablet Orally Once a day for 90 day(s) Active amLODIPine Besylate 5 MG 1 tablet Orally every morning for 90 day(s) Active SITagliptin Phosphate 100 MG 1 tablet Orally Once a day for 90 day(s) Active Blood Glucose Test Strip 1 1[employer] one touch ultra test strips machine 3 times a week for 90 day(s) Active [facility] Vitamin D 2000 UNIT 1 tab Orally qd Active Celecoxib 200 MG 1 capsule with food Orally Once a day for 90 da y(s) Oct, Active PROCEDURES No Information RESULTS No Results REASON FOR VISIT med fills MEDICAL (GENERAL) HISTORY Type Description Date Medical History hypertension, eseential Medical History hyperlipidemia 2B Medical History T2DM, diagnosed at 49 yo Medical History history of nicotine addictio n-smoked a pack per day x25 years quit at age 48 Medical History osteopenia Medical History R arm BCC excised-05/2011 Medical History 5 mm WENDY aneurysm seen by 11/2011 MRI/MRA -incidently detected Medical History skin cancers-[facility] RIGHT ARM-2011 Medical History thoracolumbar spondylosis Medical History tubular adenoma by 01/2016 colonoscopy-W Surgical History breast biopsy/left / benign 1976 Surgical History sterotatic right breast x 2/ benign Surgical History colonoscopy-hemorrhoids, div erticulosis polyps -Jing repeat 11/2005 Surgical History skin cancer removal-right arm 05/15 Surgical History OU cataract- Dr. Ch- [facility] 07/2016 Surgical History BCC removal from back-- 06/18 Surgical History BCC removal from face and h ead- Dr. Curtis[facility] 01/18 Hospitalization History none Goals Section No Information Health Concerns No Information MEDICAL EQUIPMENT No Information MENTAL STATUS No Information FUNCTIONAL STATUS No Information ASSESSMENTS Encounter Date Diagnosis Assessment Notes Treatment Notes Treatm ent Clinical Notes Dec, Essential (primary) hypertension (ICD-10 - I10) Dec, DM w/o complication type II (ICD-10 - E11.9) Dec, Mixed hyperlipidemia (ICD-10 - E78.2) PLAN OF TREATMENT Medication Medication Name Sig Start Date Stop Date Cyanocobalamin 500 MCG 1 tablet Orally Once a day for 90 day(s) Telmisartan 20 MG 2 tablets Orally every morning for 90 day(s) 1 2 Jun, 2018 Lancets 1 device subcutaneously 3 times a week Atorvastatin Calcium 40 MG 1 tablet Orally Once a day for 90 day (s) metFORMIN HCl 850 MG 1 tablet with meals by mouth Twice a day fo r 90 day(s) Voltaren 1 % as directed Transdermal four times daily for 30 day(s) [facility] Vitamin D 2000 UNIT 1 tab Orally qd Atenolol 100 mg 1 tablet by mouth Once a day for 90 day(s) Calcium 600+D High Potency 600-400 MG-UNIT 1 tablet Orally 2 arun es a day amLODIPine Besylate 5 MG 1 tablet Orally every morning for 90 da y(s) SITagliptin Phosphate 100 MG 1 tablet Orally Once a day for 90 d ay(s) Celecoxib 200 MG 1 capsule with food Orally Once a day fo r 90 day(s) Oct, Aspir-81 81 MG 1 tablet Orally Once a day for 90 day(s) Losartan Potassium 100 mg 1 tablet Orally Once a day for 90 Next Appt Details Provider Name:Graham Sales, 2021-03-05 1 0:15:00 AM, [address], , [place], [address], Insurance Providers Payer Name Payer Address Payer Phone Insured Name Patient Relati onship to Insured Coverage Start Date Coverage End Date MEDICARE Part A and B [address] [facility] [id number] [address] [facility] [address] [address] [facility] [phone] ADRIAN ALANIZ self
--- OUTSIDE RECORDS SUMMARY | 2021-02-03 07:12 | CCD | Continuity of Care Document ---
Author Author Lisa CH M.D. Organization Unknown Address [address] [place] [address] Phone [phone] Care Team Providers Care V/Stol Landing Signal Officer Name Role Phone Graham Sales MD AUTM [phone] Problems Active Problems Provider Date Screening for malignant neoplasm of colon Mario chilel M.D. Onset: 12/21/2015 Social History Type Date Description Comments Sex Unknown ETOH Use Occasionally Tobacco Use Start: Unknown End: Unknown Patient is a former smoker Allergies, Adverse Reactions, Alerts Description No Known Drug Allergies Medications Active Medications SIG Qnty Indications Ordering Provide r Date Sutab [phone] Tablets as directed 1box Mario Ch M.D. [...] kg Results Description No Information Available Procedures Date Code Description Status 12/03/2020 77592 Office/Outpatient New Low MDM 30 -44 Minutes Completed Medical Devices Description No Information Available Encounters Type Date Location Provider Dx Diagnosis Office Visit 12/03/2020 3:30p Main Office Mario Ch M.D. Z 86.010 Personal history of colonic polyps Assessments Date Code Description Provider 12/03/2020 Z86.010 [...]
--- OUTSIDE RECORDS SUMMARY | 2021-02-03 07:12 | CCD | Continuity of Care Document ---
Author Author Lisa LYNNE F.N.P. Organization Unknown Address [address] [place] [address] Phone [phone] Care Team Providers Care Ice Cream Mixer Name Role Phone Graham Sales MD AUT [phone] Problems Description No Information Available Social History Type Date Description Comments Sex Unknown Tobacco Use Start: Unknown End: Unknown Former Cigarette Smo ker Quit 2002 ETOH Use Consumes 2 beers per day Tobacco Use Start: Unknown End: Unknown Patient is a former smoker Sun Exposure minimum amount of sun exposure Sun Exposure Has never used tanning bed Sun Exposure Has never experienced blistering from sunburns Sun Exposure Uses 15-30 SPF Allergies, Adverse Reactions, Alerts Description No Known Drug Allergies Medications Active Medications SIG Qnty Indications Ordering Provide r Date Amlodipine Besylate Unknown Atenolol Unknown Calcium 600 + D Unknown 0 Metformin HCL Unknown Januvia Unknown Vitamin B12 Unknown Vitamin D Unknown Telmisartan Unknown Atorvastatin Calcium Unknown Aspirin 81 Unknown Immunizations Description No Information Available Vital Signs Date Vital Result Comment 12/16/2020 8:48am BP Systolic 110 mmHg BP Diastolic 76 mmHg Weight 120.00 lb Height 64 inches 5'4" BMI (Body Mass Index) 20.6 kg/m2 06/16/2020 12:38pm BP Systolic 122 mmHg BP Diastolic 58 mmHg Weight 120.00 lb Body Temperature 98.6 F Results Description No Information Available Procedures Date Code Description Status 12/16/2020 65232 Office/Outpatient Established Mo d MDM 30-39 Min Completed 12/16/2020 71079 Destruction Of Lesions 2-14 Comp leted 12/16/2020 35284 Destruction Of Lesion First Comp leted Medical Devices Description No Information Available Encounters Type Date Location Provider Dx Diagnosis Office Visit 12/16/2020 8:45a Main Office Roma Lynne, F.N.P. L57.0 Actinic keratosis D22.5 Melanocytic nevi of trunk L82.1 Other seborrheic keratosis L81.4 Other melanin hyperpigmentat ion Z85.828 Personal history of other ma lignant neoplasm of skin Z08 Encntr for follow-up exam af ter trtmt for malignant neoplasm Assessments Date Code Description Provider 12/16/2020 L57.0 Actinic keratosis Roma monaco F.N.P. 12/16/2020 D22.5 Melanocytic nevi of trunk Kierra Lynne F.N.P. 12/16/2020 L82.1 Other seborrheic keratosis Darlene Lynne, F.N.P. 12/16/2020 L81.4 Other melanin hyperpigmentation Roma Lynne, F.N.P. 12/16/2020 Z85.828 Personal history of other malign ant neoplasm of skin Roma Lynne, F.N.P. 12/16/2020 Z08 Encounter for follow-up examinat ion after completed treatmen Roma Lynne, F.N.P. Plan of Treatment Future Appointment(s):* 06/23/2021 8:45 am - SB [facility] at Main Office 12/16/2020 - Roma Lynne, F.N.P.* L57.0 Actinic keratosis* Comments:* Discussed actinic keratoses are precancerous proliferations that occur within sun damaged skin. If untreated, a small subset of AK's can develop into SCC's. Discussed treatment options to include LN2, topicals, Amulez with red light and no treatment.Discussed LN2 in depth to include that the areas treated will get red, bubble up/blister, maybe get a little weepy, form a scab then heal. Discussed S/E to include scarring, risk of hypopigmentation, bleeding, infection.Consent signed today.LN2 to 2 AK's today. Wound care instructions given.Sunscreen use and sun protection discussed. Contact office if AK's fail to resolve despite treatment. Instructed to call with any problems. * D22.5 Melanocytic nevi of trunk* Comments:* Nevi on trunk appear healthy. Monitor for changes. Hernandez angioma - reassurance.Sun protection and sunscreen use discussed. Literature given on how to perform monthly self skin exam. Should any moles change in shape or color, itch, bleed or burn, pt will contact office for evaluation sooner than their interval appointment. * L82.1 Other seborrheic keratosis* Comments:* Reassurance.Discussed seborrheic keratoses are benign warty growths on the skin that appear with age and that they are not contagious.The precise cause of Jay Jay K's is unknown although can run in families so genes may play a role.Discussed if ever becomes irritated to call for a removal appointment. * L81.4 Other melanin hyperpigmentation* Comments:* Solar lentigines - reassurance.Discussed that solar lentignes appear from the sun that was received years ago. * Z85.828 Personal history of other malignant neoplasm of skin* Comments:* Continue to monitor for recurrence. * Z08 Encounter for follow-up examination after completed treatmen* Comments:* Reviewed sign and symptoms of skin cancer, including ABCDE's of melanoma.Discussed the importance of using a sunscreen with Zinc Oxide or Titanium Dioxide and to reapply every 2-3 hours.Discussed importance of avoidance of tanning beds and excessive UV exposure.Discussed the importance of monthly self skin examinations.Recommended a skin cancer screening on a yearly basis.Discussed increased risk of skin cancer due to sunburn. See above. * Follow up:* 6 months/PRN - [facility] Functional Status Description No Information Available Mental Status Description No Information Available Referrals Description No Information Available
[2021-02-03] MEDS ORDERED: LIDOCAINE 2% 100MG/5ML SDV (FOR ANES.) As Ordered ONE (07:41)
[2021-02-03] MEDS ORDERED: propofoL 200 MG/20 ML VIAL As Ordered ONE (07:41)
--- NOTE | 2021-02-03 08:32 | ROOR ---
Patient Name: Lisa Boykin Procedure Date: 02/03/2021 8:05 AM Date of : 1950 Age: 71 Room: [facility] Gender: Female Note Status: Finalized Procedure: Total Colonoscopy to Cecum + Cold + Biopsy Snare Polypectomy + ileoscopy Indications: High risk colon cancer surveillance: Personal history of colonic polyps, Last colonoscopy: 2015 Providers: Mario Ch MD Referring MD: Graham Sales MD Requesting Provider: Medicines: Monitored Anesthesia Care Complications: No immediate complications. Procedure: Pre-Anesthesia Assessment: - The heart rate, respiratory rate, oxygen saturations, blood pressure, adequacy of pulmonary ventilation, and response to care were monitored throughout the procedure. The Colonoscope was introduced through the anus and advanced to the cecum, identified by appendiceal orifice and ileocecal valve. The colonoscopy was performed without difficulty. The patient tolerated the procedure well. The quality of the bowel preparation was excellent. Findings: The perianal and digital rectal examinations were normal. Non-bleeding internal hemorrhoids were found during retroflexion. The hemorrhoids were small and Grade I (internal hemorrhoids that do not prolapse). Scattered small-mouthed diverticula were found in the recto-sigmoid colon, sigmoid colon and descending colon. A small polyp was found at 20 cm proximal to the anus. The polyp was pedunculated. The polyp was removed with a cold snare. Resection and retrieval were complete. A small polyp was found in the mid ascending colon. The polyp was sessile. The polyp was removed with a jumbo cold forceps. Resection and retrieval were complete. The exam was otherwise without abnormality on direct and retroflexion views. The terminal ileum appeared normal. Impression: - Non-bleeding internal hemorrhoids. - Diverticulosis in the recto-sigmoid colon, in the sigmoid colon and in the descending colon. - One small polyp at 20 cm proximal to the anus, removed with a cold snare. Resected and retrieved. - One small polyp in the mid ascending colon, removed with a jumbo cold forceps. Resected and retrieved. - The examination was otherwise normal on direct and retroflexion views. - The examined portion of the ileum was normal. - The exam was otherwise normal to the cecum. Recommendation: - Patient has a contact number available for emergencies. The signs and symptoms of potential delayed complications were discussed with the patient. Return to normal activities tomorrow. Written discharge instructions were provided to the patient. - High fiber diet. - Discharge patient to home. - Continue present medications. - Await pathology results. - Telephone GI clinic for pathology results in 1 week. - Repeat colonoscopy in 5 years for surveillance based on pathology results. - Return to referring physician. - The findings and recommendations were discussed with the patient. Procedure Code(s): --- Professional --- 64807, Colonoscopy, flexible; with removal of tumor(s), polyp(s), or other lesion(s) by snare technique 42682, 59, Colonoscopy, flexible; with biopsy, single or multiple Diagnosis Code(s): --- Professional --- Z86.010, Personal history of colonic polyps K64.0, First degree hemorrhoids K63.5, Polyp of colon K57.30, Diverticulosis of large intestine without perforation or abscess without bleeding CPT copyright 2019 [employer]. All rights reserved. The codes documented in this report are preliminary and upon intermediate accountant review may be revised to meet current compliance requirements. Mario Ch MD Mario Ch MD 02/03/2021 8:32:13 AM Electronically signed by Mario Ch MD Number of Addenda: 0 Note Initiated On: 02/03/2021 8:05 AM Estimated Blood Loss: Estimated blood loss: none.
[2021-02-03 08:45] VITALS: BP 120/72
== END 2021-02-03 08:52 | disposition home or self-care (01) ==
LOC: M OPP 07:06
PROVIDERS: ATTEND Internal Medicine Gastroenterology
DX: Z12.11 Encounter for screening for malignant neoplasm of colon (principal); Z86.010 Personal history of colon polyps; D12.6 Benign neoplasm of colon, unspecified; K57.30 Diverticulosis of large intestine without perforation or abscess without bleeding; K64.8 Other hemorrhoids; E11.9 Type 2 diabetes mellitus without complications; Z79.82 Long term (current) use of aspirin; Z79.84 Long term (current) use of oral hypoglycemic drugs; Z79.899 Other long term (current) drug therapy

== ENCOUNTER → 2021-02-23 | Outpatient (CLI) | payer MEDICARE, OTHER ==
[~2021-02-23] MED LIST changes: -NS 1,000 ML IV ONE
[2021-02-23 10:37] LABS: BASO % 0.6 % (0.0-1.0); EOS # 0.1 10^3/uL (0.0-0.5); EOS % 0.8 % (0.0-3.0); HEMATOCRIT 40.7 % (36.0-47.0); HEMOGLOBIN 13.1 g/dl (12.0-15.5); LYMPH # 2.2 10^3/uL (1.5-5.0); LYMPH % 30.5 % (24.0-44.0); MEAN CORPUSCULAR HEMOGLOBIN 28.7 pg (27.0-33.0); MEAN CORPUSCULAR HGB CONC 32.2 g/dl (32.0-36.5); MEAN CORPUSCULAR VOLUME 89.3 fl (80.0-96.0); MONO # 0.6 10^3/uL (0.0-0.8); MONO % 8.9 % (2.0-8.0); NEUTROPHILS # 4.2 10^3/uL (1.5-8.5); NEUTROPHILS % 58.8 % (36.0-66.0); PLATELET COUNT, AUTOMATED 343 10^3/uL (150-450); RED BLOOD COUNT 4.56 10^6/uL (4.00-5.40); WHITE BLOOD COUNT 7.1 10^3/uL (4.0-10.0)
[2021-02-23 11:14] LABS: ALBUMIN 3.5 GM/DL (3.2-5.2); ALT/SGPT 24 U/L (12-78); BILIRUBIN,TOTAL 1.1 MG/DL (0.2-1.0); BLOOD UREA NITROGEN 16 MG/DL (7-18); CALCIUM LEVEL 9.1 MG/DL (8.8-10.2); CARBON DIOXIDE LEVEL 29 MEQ/L (21-32); CHLORIDE LEVEL 107 MEQ/L (98-107); CREATININE FOR GFR 0.97 MG/DL (0.55-1.30); GLOMERULAR FILTRATION RATE > 60.0 (>39); GLUCOSE, FASTING 104 MG/DL (70-100); MAGNESIUM LEVEL 1.2 MG/DL (1.8-2.4); NT-PRO BNP 425 PG/ML (<125); SODIUM LEVEL 141 MEQ/L (136-145)
[2021-02-23 14:05] LABS: PTH INTACT 23.4 PG/ML (18.5-88.0); TOTAL 25(OH) VITAMIN D 86.8 NG/ML (30.0-100.0)
== END ==
LOC: M PLALAB 08:01
PROVIDERS: ATTEND Family Medicine
DX: E55.9 Vitamin D deficiency, unspecified (principal); I10 Essential (primary) hypertension; M47.814 Spondylosis without myelopathy or radiculopathy, thoracic region; Z79.899 Other long term (current) drug therapy

== ENCOUNTER → 2021-03-24 | Outpatient (CLI) | payer MEDICARE, OTHER ==
--- NOTE | 2021-03-25 08:10 | ECHO ---
ECHOCARDIOGRAM DATE OF PROCEDURE: 03/24/2021 Age: Gender: F Height: 162 cm Weight: 54 kg REFERRING PHYSICIAN: Dr. Graham Sales INDICATION: Congestive heart failure MEASUREMENTS: IVS: 0.7 LV: 4.6 LVPW: 0.6 LA: 3.2 Aorta: 2.8 IVC: 1.4 E prime septal: 6.8 E prime lateral: 10.0 FINDINGS: This study is of good technical quality. Underlying sinus rhythm with ventricular rate approximately 90 beats per minute. The left ventricle has normal size and normal systolic function with estimated left ventricular ejection fraction (LVEF) 60% to 65%. No segmental wall motion abnormalities are noted. Normal right ventricle size and systolic function is noted. Both atria appear normal. Aortic, mitral and tricuspid valves also appear normal. Pulmonic valve was not well visualized. No pericardial effusion is noted. Inferior vena cava is normal size and appropriately collapses with inspiration indicative of normal central venous pressure. Aortic root is normal. Aortic arch and abdominal aorta were not well seen. Doppler interrogation of aortic valve reveals no stenosis or insufficiency. There is trace mitral and mild tricuspid insufficiency. Calculated pulmonary artery pressure is mid to high 30s corresponding to mild pulmonary hypertension. Evaluation of diastolic function was incomplete. Mitral inflow pattern was not performed but tissue Doppler velocities are relatively preserved so I have to assume relatively preserved diastolic function. CONCLUSIONS: 1. Study is of good technical quality; underlying sinus rhythm. 2. Normal left ventricle (LV) size with normal left ventricular (LV) systolic function. Incomplete evaluation of diastolic function. 3. Normal right ventricle (RV) size and systolic function. 4. No significant valvular disease. 5. Normal central venous pressure and mild pulmonary hypertension. 6. This study is not overly supportive of diagnosis of congestive heart failure.
== END ==
LOC: M CARPUL 10:34
PROVIDERS: ATTEND Family Medicine
DX: I50.9 Heart failure, unspecified (principal)

== ENCOUNTER → 2021-10-08 | Outpatient (CLI) | payer MEDICARE, OTHER ==
[~2021-10-08] MED LIST changes: -D31000TA2 PO; +LOSA100T45 PO; -LOSA100T50 PO; +VITA100093 PO
== END ==
LOC: M WHC 08:55
PROVIDERS: ATTEND Family Medicine
DX: Z12.31 Encounter for screening mammogram for malignant neoplasm of breast (principal); M85.851 Other specified disorders of bone density and structure, right thigh; M85.852 Other specified disorders of bone density and structure, left thigh

== ENCOUNTER → 2021-10-19 | Outpatient (CLI) | payer MEDICARE, OTHER ==
[2021-10-19 10:34] LABS: BASO # 0.1 10^3/uL (0.0-0.2); BASO % 0.6 % (0.0-1.0); EOS # 0.1 10^3/uL (0.0-0.5); EOS % 0.9 % (0.0-3.0); HEMATOCRIT 40.8 % (36.0-47.0); HEMOGLOBIN 13.2 g/dl (12.0-15.5); LYMPH # 1.7 10^3/uL (1.5-5.0); LYMPH % 17.8 % (24.0-44.0); MEAN CORPUSCULAR HEMOGLOBIN 28.6 pg (27.0-33.0); MEAN CORPUSCULAR HGB CONC 32.4 g/dl (32.0-36.5); MEAN CORPUSCULAR VOLUME 88.3 fl (80.0-96.0); MONO # 0.8 10^3/uL (0.0-0.8); MONO % 8.1 % (2.0-8.0); NEUTROPHILS % 72.1 % (36.0-66.0); PLATELET COUNT, AUTOMATED 388 10^3/uL (150-450); RED BLOOD COUNT 4.62 10^6/uL (4.00-5.40); WHITE BLOOD COUNT 9.7 10^3/uL (4.0-10.0)
[2021-10-19 11:05] LABS: ALBUMIN 3.6 GM/DL (3.2-5.2); ALT/SGPT 21 U/L (12-78); BLOOD UREA NITROGEN 13 MG/DL (7-18); CALCIUM LEVEL 9.7 MG/DL (8.8-10.2); CARBON DIOXIDE LEVEL 28 MEQ/L (21-32); CHLORIDE LEVEL 108 MEQ/L (98-107); CHOLESTEROL LEVEL 166 MG/DL (<200); CHOLESTEROL RISK RATIO 1.952 (<5); CREATININE FOR GFR 0.84 MG/DL (0.55-1.30); FERRITIN 9 NG/ML (8-252); FREE T4 1.15 NG/DL (0.76-1.46); GLOMERULAR FILTRATION RATE > 60.0 (>39); GLUCOSE, FASTING 92 MG/DL (70-100); HDL CHOLESTEROL 85 MG/DL (>40); LDL CHOLESTEROL 62 MG/DL (<100); MAGNESIUM LEVEL 1.1 MG/DL (1.8-2.4); NON-HDL-C 81 MG/DL; NT-PRO BNP 263 PG/ML (<125); POTASSIUM SERUM 4.5 MEQ/L (3.5-5.1); SODIUM LEVEL 143 MEQ/L (136-145); THYROID STIMULATING HORMONE 0.939 uIU/ML (0.358-3.740); TOTAL PROTEIN 7.1 GM/DL (6.4-8.2); TRIGLYCERIDES LEVEL 94 MG/DL (<150)
== END ==
LOC: M PLALAB 08:52
PROVIDERS: ATTEND Family Medicine
DX: I10 Essential (primary) hypertension (principal); D50.9 Iron deficiency anemia, unspecified; E11.9 Type 2 diabetes mellitus without complications

== ENCOUNTER → 2022-03-23 | Outpatient (CLI) | payer MEDICARE, OTHER ==
[2022-03-23 11:29] LABS: BASO % 0.5 % (0.0-1.0); EOS # 0.1 10^3/uL (0.0-0.5); EOS % 0.8 % (0.0-3.0); HEMATOCRIT 41.4 % (36.0-47.0); HEMOGLOBIN 13.1 g/dl (12.0-15.5); LYMPH # 2.1 10^3/uL (1.5-5.0); LYMPH % 27.7 % (24.0-44.0); MEAN CORPUSCULAR HEMOGLOBIN 28.4 pg (27.0-33.0); MEAN CORPUSCULAR HGB CONC 31.6 g/dl (32.0-36.5); MEAN CORPUSCULAR VOLUME 89.8 fl (80.0-96.0); MONO # 0.6 10^3/uL (0.0-0.8); MONO % 7.1 % (2.0-8.0); NEUTROPHILS # 4.9 10^3/uL (1.5-8.5); NEUTROPHILS % 63.5 % (36.0-66.0); PLATELET COUNT, AUTOMATED 386 10^3/uL (150-450); RED BLOOD COUNT 4.61 10^6/uL (4.00-5.40); WHITE BLOOD COUNT 7.7 10^3/uL (4.0-10.0)
[2022-03-23 11:53] LABS: ALBUMIN 3.8 G/DL (3.2-5.2); ALKALINE PHOSPHATASE 66 U/L (46-116); ALT/SGPT 19 U/L (7.0-40); AST/SGOT 31 U/L (<34); BILIRUBIN,TOTAL 1.1 MG/DL (0.3-1.2); BLOOD UREA NITROGEN 13 MG/DL (9-23); CALCIUM LEVEL 9.7 MG/DL (8.3-10.6); CARBON DIOXIDE LEVEL 29 MMOL/L (20-31); CHLORIDE LEVEL 104 MMOL/L (98-107); CREATININE FOR GFR 0.78 MG/DL (0.55-1.30); GLOMERULAR FILTRATION RATE > 60.0 (>39); GLUCOSE, FASTING 100 MG/DL (74-106); POTASSIUM SERUM 4.3 MMOL/L (3.5-5.1); PTH INTACT 26.1 PG/ML (18.5-88.0); SODIUM LEVEL 140 MMOL/L (136-145); TOTAL 25(OH) VITAMIN D 74.1 NG/ML (20.0-100.0); VITAMIN B12 LEVEL 776 PG/ML (211-911)
[2022-03-23 12:01] LABS: HEMOGLOBIN A1c 5.7 % (4.0-6.0)
[2022-03-24 11:08] LABS: H PYLORI SERUM QUANT IgG ABY 0.11 (0.00-0.79)
== END ==
LOC: M PLALAB 07:59
PROVIDERS: ATTEND Family Medicine
DX: D50.9 Iron deficiency anemia, unspecified (principal); E11.9 Type 2 diabetes mellitus without complications; E53.8 Deficiency of other specified B group vitamins; E55.9 Vitamin D deficiency, unspecified

== ENCOUNTER → 2022-09-21 | Outpatient (CLI) | payer MEDICARE, OTHER ==
[~2022-09-21] MED LIST changes: -LOSA100T45 PO; +LOSA100T46 PO
[2022-09-21 11:22] LABS: C REACTIVE PROTEIN QUANTITATIV < 0.40 MG/DL (<1.0)
[2022-09-21 11:23] LABS: CPK CREATINE PHOSPHOKINASE 114 U/L (34-145)
[2022-09-21 11:24] LABS: ALBUMIN 3.5 G/DL (3.2-5.2); ALKALINE PHOSPHATASE 70 U/L (46-116); ALT/SGPT 17 U/L (7.0-40); AST/SGOT 25 U/L (<34); BLOOD UREA NITROGEN 12 MG/DL (9-23); CALCIUM LEVEL 8.8 MG/DL (8.3-10.6); CARBON DIOXIDE LEVEL 27 MMOL/L (20-31); CHLORIDE LEVEL 105 MMOL/L (98-107); CHOLESTEROL LEVEL 150 MG/DL (<200); CHOLESTEROL RISK RATIO 1.98 (<5); CREATININE FOR GFR 0.79 MG/DL (0.55-1.30); FREE T4 1.23 NG/DL (0.89-1.76); GLOMERULAR FILTRATION RATE > 60.0 (>39); GLUCOSE, FASTING 95 MG/DL (74-106); HDL CHOLESTEROL 75.5 MG/DL (>40); LDL CHOLESTEROL 59.1 MG/DL (<100); MAGNESIUM LEVEL 1.1 MG/DL (1.8-2.4); NON-HDL-C 74.5 MG/DL; POTASSIUM SERUM 4.3 MMOL/L (3.5-5.1); SODIUM LEVEL 140 MMOL/L (136-145); TOTAL PROTEIN 6.5 G/DL (5.7-8.2); TRIGLYCERIDES LEVEL 77 MG/DL (<150)
== END ==
LOC: M PLALAB 07:59
PROVIDERS: ATTEND Family Medicine
DX: I10 Essential (primary) hypertension (principal); E11.9 Type 2 diabetes mellitus without complications

== ENCOUNTER → 2022-10-18 | Outpatient (CLI) | payer MEDICARE, OTHER | LOC: M WHC 07:02 | PROVIDERS: ATTEND Family Medicine | DX: Z12.31 Encounter for screening mammogram for malignant neoplasm of breast (principal) ==

== ENCOUNTER → 2023-02-01 | Outpatient (CLI) | payer MEDICARE, OTHER | LOC: M PLAIMG 12:16 | PROVIDERS: ATTEND Family Medicine | DX: I67.1 Cerebral aneurysm, nonruptured (principal) ==

== ENCOUNTER → 2023-03-10 | Outpatient (CLI) | payer MEDICARE, OTHER ==
[2023-03-10 12:34] LABS: BASO # 0.1 10^3/uL (0.0-0.2); BASO % 0.8 % (0.0-1.0); EOS # 0.1 10^3/uL (0.0-0.5); EOS % 0.8 % (0.0-3.0); HEMATOCRIT 39.1 % (36.0-47.0); HEMOGLOBIN 12.3 g/dl (12.0-15.5); LYMPH # 1.8 10^3/uL (1.5-5.0); LYMPH % 23.9 % (24.0-44.0); MEAN CORPUSCULAR HEMOGLOBIN 27.9 pg (27.0-33.0); MEAN CORPUSCULAR HGB CONC 31.5 g/dl (32.0-36.5); MEAN CORPUSCULAR VOLUME 88.7 fl (80.0-96.0); MONO # 0.6 10^3/uL (0.0-0.8); MONO % 8.1 % (2.0-8.0); NEUTROPHILS # 5.1 10^3/uL (1.5-8.5); PLATELET COUNT, AUTOMATED 360 10^3/uL (150-450); RED BLOOD COUNT 4.41 10^6/uL (4.00-5.40); WHITE BLOOD COUNT 7.7 10^3/uL (4.0-10.0)
[2023-03-10 12:58] LABS: CREATININE,RANDOM URINE 175.5 MG/DL; MAGNESIUM URINE RANDOM 5.1 MG/DL
[2023-03-10 13:02] LABS: ALBUMIN 3.5 G/DL (3.2-5.2); ALKALINE PHOSPHATASE 65 U/L (46-116); ALT/SGPT 21 U/L (7.0-40); AST/SGOT 24 U/L (<34); BILIRUBIN,TOTAL 0.8 MG/DL (0.3-1.2); BLOOD UREA NITROGEN 12 MG/DL (9-23); CARBON DIOXIDE LEVEL 27 MMOL/L (20-31); CHLORIDE LEVEL 106 MMOL/L (98-107); CREATININE FOR GFR 0.72 MG/DL (0.55-1.30); GLOMERULAR FILTRATION RATE > 60.0 (>39); GLUCOSE, FASTING 90 MG/DL (74-106); MAGNESIUM LEVEL 1.2 MG/DL (1.8-2.4); POTASSIUM SERUM 4.4 MMOL/L (3.5-5.1); PTH INTACT 23.9 PG/ML (18.5-88.0); SODIUM LEVEL 142 MMOL/L (136-145); TOTAL PROTEIN 6.6 G/DL (5.7-8.2)
[2023-03-10 13:03] LABS: TOTAL 25(OH) VITAMIN D 60.7 NG/ML (20.0-100.0); VITAMIN B12 LEVEL 669 PG/ML (211-911)
[2023-03-10 13:04] LABS: FERRITIN 2.8 NG/ML (7.3-270.7)
== END ==
LOC: M PLALAB 08:04
PROVIDERS: ATTEND Family Medicine
DX: I10 Essential (primary) hypertension (principal); D50.9 Iron deficiency anemia, unspecified; E53.8 Deficiency of other specified B group vitamins; E55.9 Vitamin D deficiency, unspecified

== ENCOUNTER → 2023-03-20 | Outpatient (REF) | payer MEDICARE, OTHER | LOC: M SFHCPLAZ 12:10 | PROVIDERS: ATTEND Family Medicine | DX: D50.9 Iron deficiency anemia, unspecified (principal); E11.9 Type 2 diabetes mellitus without complications ==

== ENCOUNTER 2023-08-05 17:34 | Emergency (ER) | payer MEDICARE, OTHER ==
[~2023-08-05] VITALS: Ht 162.6 cm; Wt 54.3 kg
[2023-08-05 17:40] VITALS: TEMP 97.7
[2023-08-05] MEDS ORDERED: ISOVUE-370 76% 100ML VIAL As Ordered ONE (17:45)
[2023-08-05] MEDS ORDERED: ESSE250T PO (18:10)
[2023-08-05 18:18] LABS: BASO # 0.1 10^3/uL (0.0-0.2); BASO % 0.6 % (0.0-1.0); EOS # 0.1 10^3/uL (0.0-0.5); EOS % 1.1 % (0.0-3.0); HEMATOCRIT 40.7 % (36.0-47.0); HEMOGLOBIN 13.3 g/dl (12.0-15.5); LYMPH # 3.9 10^3/uL (1.5-5.0); LYMPH % 35.5 % (24.0-44.0); MEAN CORPUSCULAR HEMOGLOBIN 28.5 pg (27.0-33.0); MEAN CORPUSCULAR HGB CONC 32.7 g/dl (32.0-36.5); MEAN CORPUSCULAR VOLUME 87.2 fl (80.0-96.0); MONO # 0.9 10^3/uL (0.0-0.8); MONO % 8.6 % (2.0-8.0); NEUTROPHILS # 5.8 10^3/uL (1.5-8.5); NEUTROPHILS % 53.7 % (36.0-66.0); PLATELET COUNT, AUTOMATED 368 10^3/uL (150-450); RED BLOOD COUNT 4.67 10^6/uL (4.00-5.40); WHITE BLOOD COUNT 10.9 10^3/uL (4.0-10.0)
[2023-08-05 18:30] LABS: INR 0.95; PARTIAL THROMBOPLASTIN TIME 25.3 SECONDS (24.8-34.2); PROTHROMBIN TIME 12.4 SECONDS (12.5-14.5)
[2023-08-05 18:43] LABS: CPK CREATINE PHOSPHOKINASE 120 U/L (34-145)
[2023-08-05 18:44] LABS: BLOOD UREA NITROGEN 17 MG/DL (9-23); CALCIUM LEVEL 9.6 MG/DL (8.3-10.6); CARBON DIOXIDE LEVEL 24 MMOL/L (20-31); CHLORIDE LEVEL 101 MMOL/L (98-107); CK-MB VALUE MASS 1.7 NG/ML (<3.6); CREATININE FOR GFR 0.83 MG/DL (0.55-1.30); GLOMERULAR FILTRATION RATE > 60.0 (>39); GLUCOSE, FASTING 92 MG/DL (74-106); MB/CK RELATIVE INDEX 1.41 (< OR =4); POTASSIUM SERUM 4.2 MMOL/L (3.5-5.1); SODIUM LEVEL 137 MMOL/L (136-145)
[2023-08-05] MEDS ORDERED: MED REC IN PROGRESS XX SCH (18:45)
[2023-08-05] MEDS ORDERED: TELM1TAB35 PO (19:28)
[2023-08-05] MEDS ORDERED: D200CAP3 PO (19:28)
[2023-08-05] MEDS ORDERED: CALC600T86 PO (19:28)
[2023-08-05] MEDS ORDERED: AMLO1TAB24 PO (19:28)
[2023-08-05] MEDS ORDERED: MAGN64TASA PO (19:28)
[2023-08-05] MEDS ORDERED: HOME MED LIST COMPLETE! XX SCH (19:30)
[2023-08-05 22:00] VITALS: BP 129/78; O2SAT 94
== END 2023-08-05 22:13 | disposition short-term general hospital (02) ==
LOC: M ED 17:34
DX: G45.9 Transient cerebral ischemic attack, unspecified (principal); I72.8 Aneurysm of other specified arteries; E11.9 Type 2 diabetes mellitus without complications; I10 Essential (primary) hypertension; Z87.891 Personal history of nicotine dependence; Z79.899 Other long term (current) drug therapy; Z88.6 Allergy status to analgesic agent
CPT/HCPCS: 70450; 70496; 70498; 71045; 80047; 80048; 81001; 82550; 82553; 84484; 85025; 85610; 85730; 93005; 93041; 94760; 99285; Q9967

== ENCOUNTER → 2023-09-01 | Outpatient (CLI) | payer MEDICARE, OTHER ==
[~2023-09-01] MED LIST changes: +AMLO1TAB24 PO; +CALC600T86 PO; +D200CAP3 PO; +ESSE250T PO; +MAGN64TASA PO; +TELM1TAB35 PO
[2023-09-01 10:48] LABS: BASO # 0.1 10^3/uL (0.0-0.2); BASO % 0.6 % (0.0-1.0); EOS # 0.1 10^3/uL (0.0-0.5); EOS % 0.6 % (0.0-3.0); HEMATOCRIT 34.4 % (36.0-47.0); HEMOGLOBIN 11.1 g/dl (12.0-15.5); LYMPH # 1.5 10^3/uL (1.5-5.0); LYMPH % 16.8 % (24.0-44.0); MEAN CORPUSCULAR HEMOGLOBIN 28.2 pg (27.0-33.0); MEAN CORPUSCULAR HGB CONC 32.3 g/dl (32.0-36.5); MEAN CORPUSCULAR VOLUME 87.3 fl (80.0-96.0); MONO # 0.6 10^3/uL (0.0-0.8); MONO % 6.7 % (2.0-8.0); NEUTROPHILS # 6.7 10^3/uL (1.5-8.5); PLATELET COUNT, AUTOMATED 371 10^3/uL (150-450); RED BLOOD COUNT 3.94 10^6/uL (4.00-5.40); WHITE BLOOD COUNT 8.9 10^3/uL (4.0-10.0)
[2023-09-01 11:14] LABS: CREATININE, URINE 225.8 MG/DL; MAU/CREAT RATIO 14.1 MCG/MG (0.0-30.0)
[2023-09-01 11:28] LABS: HEMOGLOBIN A1c 5.9 % (4.0-6.0)
[2023-09-01 11:42] LABS: ALBUMIN 3.4 G/DL (3.2-5.2); ALKALINE PHOSPHATASE 73 U/L (46-116); ALT/SGPT 17 U/L (7.0-40); AST/SGOT 15 U/L (<34); BILIRUBIN,TOTAL 0.5 MG/DL (0.3-1.2); BLOOD UREA NITROGEN 10 MG/DL (9-23); CALCIUM LEVEL 9.1 MG/DL (8.3-10.6); CARBON DIOXIDE LEVEL 28 MMOL/L (20-31); CHLORIDE LEVEL 100 MMOL/L (98-107); CHOLESTEROL LEVEL 152 MG/DL (<200); CHOLESTEROL RISK RATIO 2.45 (<5); FERRITIN 5.6 NG/ML (7.3-270.7); FREE T4 1.14 NG/DL (0.89-1.76); GLOMERULAR FILTRATION RATE > 60.0 (>39); GLUCOSE, FASTING 91 MG/DL (74-106); HDL CHOLESTEROL 61.9 MG/DL (>40); LDL CHOLESTEROL 67.7 MG/DL (<100); MAGNESIUM LEVEL 0.9 MG/DL (1.8-2.4); NON-HDL-C 90.1 MG/DL; POTASSIUM SERUM 4.5 MMOL/L (3.5-5.1); SODIUM LEVEL 132 MMOL/L (136-145); THYROID STIMULATING HORMONE 1.188 uIU/ML (0.55-4.78); TOTAL PROTEIN 6.3 G/DL (5.7-8.2); TRIGLYCERIDES LEVEL 112 MG/DL (<150)
== END ==
LOC: M PLALAB 08:26
PROVIDERS: ATTEND Family Medicine
DX: D50.9 Iron deficiency anemia, unspecified (principal); E11.9 Type 2 diabetes mellitus without complications; I10 Essential (primary) hypertension; R56.9 Unspecified convulsions

== ENCOUNTER → 2023-09-01 | Outpatient (CLI) | payer MEDICARE, OTHER ==
[2023-09-01 11:14] LABS: BLOOD UREA NITROGEN 9 MG/DL (9-23); CARBON DIOXIDE LEVEL 26 MMOL/L (20-31); CHLORIDE LEVEL 101 MMOL/L (98-107); CREATININE FOR GFR 0.71 MG/DL (0.55-1.30); GLOMERULAR FILTRATION RATE > 60.0 (>39); GLUCOSE, FASTING 93 MG/DL (74-106); POTASSIUM SERUM 4.5 MMOL/L (3.5-5.1); SODIUM LEVEL 134 MMOL/L (136-145)
== END ==
LOC: M PLALAB 08:24
DX: R56.9 Unspecified convulsions (principal)

== ENCOUNTER → 2023-09-18 | Outpatient (CLI) | payer MEDICARE, OTHER ==
[2023-09-18 15:29] LABS: OSMOLALITY URINE 713 MOSM/KG (50-1400)
[2023-09-18 15:47] LABS: SODIUM,RANDOM URINE 22 MMOL/L
[2023-09-18 15:49] LABS: BASO % 0.4 % (0.0-1.0); EOS # 0.1 10^3/uL (0.0-0.5); EOS % 0.9 % (0.0-3.0); HEMATOCRIT 36.1 % (36.0-47.0); HEMOGLOBIN 11.5 g/dl (12.0-15.5); LYMPH # 1.1 10^3/uL (1.5-5.0); LYMPH % 9.3 % (24.0-44.0); MEAN CORPUSCULAR HGB CONC 31.9 g/dl (32.0-36.5); MEAN CORPUSCULAR VOLUME 84.7 fl (80.0-96.0); MONO # 0.9 10^3/uL (0.0-0.8); NEUTROPHILS # 9.2 10^3/uL (1.5-8.5); NEUTROPHILS % 80.8 % (36.0-66.0); PLATELET COUNT, AUTOMATED 433 10^3/uL (150-450); RED BLOOD COUNT 4.26 10^6/uL (4.00-5.40); WHITE BLOOD COUNT 11.4 10^3/uL (4.0-10.0)
[2023-09-18 16:20] LABS: OSMOLALITY SERUM 281 MOSM/KG (280-301)
[2023-09-18 17:24] LABS: ALBUMIN 3.3 G/DL (3.2-5.2); ALKALINE PHOSPHATASE 104 U/L (46-116); ALT/SGPT 49 U/L (7.0-40); AST/SGOT 31 U/L (<34); BILIRUBIN,TOTAL 0.3 MG/DL (0.3-1.2); BLOOD UREA NITROGEN 11 MG/DL (9-23); CALCIUM LEVEL 10.8 MG/DL (8.3-10.6); CARBON DIOXIDE LEVEL 26 MMOL/L (20-31); CHLORIDE LEVEL 98 MMOL/L (98-107); CREATININE FOR GFR 0.67 MG/DL (0.55-1.30); FERRITIN 18.5 NG/ML (7.3-270.7); GLOMERULAR FILTRATION RATE > 60.0 (>39); GLUCOSE, FASTING 106 MG/DL (74-106); MAGNESIUM LEVEL 0.9 MG/DL (1.8-2.4); POTASSIUM SERUM 3.8 MMOL/L (3.5-5.1); SODIUM LEVEL 132 MMOL/L (136-145); VITAMIN B12 LEVEL 751 PG/ML (211-911)
[2023-09-22 02:53] LABS: OXCARBAZEPINE 22.8 mcg/mL (8.0-35.0)
== END ==
LOC: M PLALAB 12:57
PROVIDERS: ATTEND Family Medicine
DX: D50.9 Iron deficiency anemia, unspecified (principal); E11.9 Type 2 diabetes mellitus without complications; I10 Essential (primary) hypertension; E53.8 Deficiency of other specified B group vitamins; I60.9 Nontraumatic subarachnoid hemorrhage, unspecified; K76.0 Fatty (change of) liver, not elsewhere classified; M47.812 Spondylosis without myelopathy or radiculopathy, cervical region

== ENCOUNTER → 2023-09-25 | Outpatient (CLI) | payer MEDICARE, OTHER ==
[2023-09-25 10:39] LABS: ALBUMIN 2.9 G/DL (3.2-5.2); ALKALINE PHOSPHATASE 107 U/L (46-116); ALT/SGPT 54 U/L (7.0-40); AST/SGOT 26 U/L (<34); BILIRUBIN,TOTAL 0.4 MG/DL (0.3-1.2); BLOOD UREA NITROGEN 9 MG/DL (9-23); CALCIUM LEVEL 9.7 MG/DL (8.3-10.6); CARBON DIOXIDE LEVEL 25 MMOL/L (20-31); CHLORIDE LEVEL 106 MMOL/L (98-107); CREATININE FOR GFR 0.62 MG/DL (0.55-1.30); GLOMERULAR FILTRATION RATE > 60.0 (>39); GLUCOSE, FASTING 118 MG/DL (74-106); MAGNESIUM LEVEL 1.2 MG/DL (1.8-2.4); POTASSIUM SERUM 4.3 MMOL/L (3.5-5.1); PTH INTACT 12.2 PG/ML (18.5-88.0); SODIUM LEVEL 138 MMOL/L (136-145); TOTAL 25(OH) VITAMIN D 84.9 NG/ML (20.0-100.0); TOTAL PROTEIN 6.5 G/DL (5.7-8.2)
== END ==
LOC: M LAB 07:57 → M PLALAB 07:57
PROVIDERS: ATTEND Family Medicine
DX: E87.1 Hypo-osmolality and hyponatremia (principal); I10 Essential (primary) hypertension; K76.0 Fatty (change of) liver, not elsewhere classified; I60.9 Nontraumatic subarachnoid hemorrhage, unspecified; E55.9 Vitamin D deficiency, unspecified

== ENCOUNTER → 2023-10-16 | Outpatient (CLI) | payer MEDICARE, OTHER | LOC: M RAD 08:05 | PROVIDERS: ATTEND Neurological Surgery | DX: Z98.890 Other specified postprocedural states (principal); J32.0 Chronic maxillary sinusitis; Z86.79 Personal history of other diseases of the circulatory system; E11.9 Type 2 diabetes mellitus without complications; I11.0 Hypertensive heart disease with heart failure; E53.8 Deficiency of other specified B group vitamins; I50.32 Chronic diastolic (congestive) heart failure; I67.1 Cerebral aneurysm, nonruptured; I60.9 Nontraumatic subarachnoid hemorrhage, unspecified ==

== ENCOUNTER → 2023-10-16 | Outpatient (CLI) | payer MEDICARE, OTHER ==
[2023-10-16 11:53] LABS: HEMATOCRIT 37.5 % (36.0-47.0)
[2023-10-16 12:29] LABS: ALBUMIN 3.4 G/DL (3.2-5.2); ALKALINE PHOSPHATASE 87 U/L (46-116); ALT/SGPT 17 U/L (7.0-40); AST/SGOT 20 U/L (<34); BILIRUBIN,TOTAL 0.7 MG/DL (0.3-1.2); BLOOD UREA NITROGEN 12 MG/DL (9-23); CALCIUM LEVEL 9.4 MG/DL (8.3-10.6); CARBON DIOXIDE LEVEL 29 MMOL/L (20-31); CHLORIDE LEVEL 108 MMOL/L (98-107); CREATININE FOR GFR 0.95 MG/DL (0.55-1.30); GLOMERULAR FILTRATION RATE > 60.0 (>39); GLUCOSE, FASTING 85 MG/DL (74-106); MAGNESIUM LEVEL 1.6 MG/DL (1.8-2.4); POTASSIUM SERUM 5.1 MMOL/L (3.5-5.1); SODIUM LEVEL 140 MMOL/L (136-145); TOTAL PROTEIN 6.5 G/DL (5.7-8.2)
[2023-10-16 12:31] LABS: VITAMIN B12 LEVEL 907 PG/ML (211-911)
== END ==
LOC: M PLALAB 08:31
PROVIDERS: ATTEND Family Medicine
DX: E11.9 Type 2 diabetes mellitus without complications (principal); I11.0 Hypertensive heart disease with heart failure; E53.8 Deficiency of other specified B group vitamins; I50.32 Chronic diastolic (congestive) heart failure; I67.1 Cerebral aneurysm, nonruptured; I60.9 Nontraumatic subarachnoid hemorrhage, unspecified

== ENCOUNTER → 2023-10-27 | Outpatient (CLI) | payer MEDICARE, OTHER | LOC: M WHC 07:49 | PROVIDERS: ATTEND Family Medicine | DX: Z12.31 Encounter for screening mammogram for malignant neoplasm of breast (principal); R92.323 Mammographic fibroglandular density, bilateral breasts ==

== ENCOUNTER → 2024-01-25 | Outpatient (CLI) | payer MEDICARE, OTHER ==
[2024-01-25 11:18] LABS: BASO % 0.5 % (0.0-1.0); EOS % 0.7 % (0.0-3.0); HEMATOCRIT 41.7 % (36.0-47.0); HEMOGLOBIN 13.3 g/dl (12.0-15.5); LYMPH # 1.5 10^3/uL (1.5-5.0); LYMPH % 26.8 % (24.0-44.0); MEAN CORPUSCULAR HEMOGLOBIN 27.9 pg (27.0-33.0); MEAN CORPUSCULAR HGB CONC 31.9 g/dl (32.0-36.5); MEAN CORPUSCULAR VOLUME 87.4 fl (80.0-96.0); MONO # 0.5 10^3/uL (0.0-0.8); MONO % 9.6 % (2.0-8.0); NEUTROPHILS # 3.5 10^3/uL (1.5-8.5); PLATELET COUNT, AUTOMATED 328 10^3/uL (150-450); RED BLOOD COUNT 4.77 10^6/uL (4.00-5.40); WHITE BLOOD COUNT 5.6 10^3/uL (4.0-10.0)
[2024-01-25 11:32] LABS: ALBUMIN 3.3 G/DL (3.2-5.2); ALKALINE PHOSPHATASE 87 U/L (46-116); ALT/SGPT 14 U/L (7.0-40); AST/SGOT 15 U/L (<34); BILIRUBIN,TOTAL 0.7 MG/DL (0.3-1.2); BLOOD UREA NITROGEN 15 MG/DL (9-23); CALCIUM LEVEL 9.7 MG/DL (8.3-10.6); CARBON DIOXIDE LEVEL 29 MMOL/L (20-31); CHLORIDE LEVEL 108 MMOL/L (98-107); CHOLESTEROL LEVEL 168 MG/DL (<200); CHOLESTEROL RISK RATIO 2.33 (<5); CREATININE FOR GFR 0.88 MG/DL (0.55-1.30); FERRITIN 7.8 NG/ML (7.3-270.7); GLOMERULAR FILTRATION RATE > 60.0 (>39); GLUCOSE, FASTING 90 MG/DL (74-106); HDL CHOLESTEROL 71.8 MG/DL (>40); MAGNESIUM LEVEL 1.6 MG/DL (1.8-2.4); NON-HDL-C 96.2 MG/DL; POTASSIUM SERUM 4.5 MMOL/L (3.5-5.1); SODIUM LEVEL 142 MMOL/L (136-145); TOTAL 25(OH) VITAMIN D 53.1 NG/ML (20.0-100.0); TOTAL PROTEIN 6.4 G/DL (5.7-8.2); TRIGLYCERIDES LEVEL 81 MG/DL (<150)
[2024-01-25 11:47] LABS: HEMOGLOBIN A1c 5.9 % (4.0-6.0)
== END ==
LOC: M PLALAB 08:03
PROVIDERS: ATTEND Family Medicine
DX: I10 Essential (primary) hypertension (principal); E11.9 Type 2 diabetes mellitus without complications; E78.2 Mixed hyperlipidemia; E55.9 Vitamin D deficiency, unspecified

== ENCOUNTER → 2024-07-09 | Outpatient (CLI) | payer MEDICARE, OTHER ==
[2024-07-09 10:23] LABS: ALBUMIN 3.3 G/DL (3.2-5.2); ALKALINE PHOSPHATASE 88 U/L (35-104); ALT/SGPT 22 U/L (7.0-40); AST/SGOT 23 U/L (<34); BASO # 0.1 10^3/uL (0.0-0.2); BASO % 0.6 % (0.0-1.0); BILIRUBIN,TOTAL 0.7 MG/DL (0.3-1.2); BLOOD UREA NITROGEN 12 MG/DL (9-23); CALCIUM LEVEL 9.5 MG/DL (8.3-10.6); CARBON DIOXIDE LEVEL 30 MMOL/L (20-31); CHLORIDE LEVEL 108 MMOL/L (98-107); CHOLESTEROL LEVEL 154 MG/DL (<200); CHOLESTEROL RISK RATIO 2.03 (<5); CREATININE FOR GFR 0.98 MG/DL (0.55-1.30); EOS # 0.2 10^3/uL (0.0-0.5); EOS % 1.9 % (0.0-3.0); GLOMERULAR FILTRATION RATE > 60.0 (>39); GLUCOSE, FASTING 98 MG/DL (74-106); HDL CHOLESTEROL 75.8 MG/DL (>40); HEMATOCRIT 43.5 % (36.0-47.0); HEMOGLOBIN 14.1 g/dl (12.0-15.5); LDL CHOLESTEROL 59.8 MG/DL (<100); LYMPH # 1.6 10^3/uL (1.5-5.0); LYMPH % 18.9 % (24.0-44.0); MAGNESIUM LEVEL 1.7 MG/DL (1.8-2.4); MEAN CORPUSCULAR HEMOGLOBIN 29.7 pg (27.0-33.0); MEAN CORPUSCULAR HGB CONC 32.4 g/dl (32.0-36.5); MEAN CORPUSCULAR VOLUME 91.8 fl (80.0-96.0); MONO # 0.7 10^3/uL (0.0-0.8); MONO % 8.6 % (2.0-8.0); NEUTROPHILS % 69.8 % (36.0-66.0); NON-HDL-C 78.2 MG/DL; PLATELET COUNT, AUTOMATED 293 10^3/uL (150-450); POTASSIUM SERUM 4.7 MMOL/L (3.5-5.1); RED BLOOD COUNT 4.74 10^6/uL (4.00-5.40); SODIUM LEVEL 143 MMOL/L (136-145); TOTAL PROTEIN 6.7 G/DL (5.7-8.2); TRIGLYCERIDES LEVEL 92 MG/DL (<150); WHITE BLOOD COUNT 8.6 10^3/uL (4.0-10.0)
[2024-07-09 10:25] LABS: FERRITIN 14.3 NG/ML (7.3-270.7)
[2024-07-09 10:28] LABS: CPK CREATINE PHOSPHOKINASE 133 U/L (34-145)
== END ==
LOC: M PLALAB 08:11
PROVIDERS: ATTEND Family Medicine
DX: E11.9 Type 2 diabetes mellitus without complications (principal)

== ENCOUNTER → 2024-10-26 | Outpatient (CLI) | payer MEDICARE, OTHER ==
[~2024-10-26] MED LIST changes: -ESSE250T PO; +MAGN250T17 PO
== END ==
LOC: M RAD 10:35
PROVIDERS: ATTEND Neurological Surgery
DX: I67.1 Cerebral aneurysm, nonruptured (principal); Z98.890 Other specified postprocedural states

== ENCOUNTER → 2024-10-28 | Outpatient (CLI) | payer MEDICARE, OTHER | LOC: M WHC 08:37 | PROVIDERS: ATTEND Family Medicine | DX: Z12.39 Encounter for other screening for malignant neoplasm of breast (principal); M85.89 Other specified disorders of bone density and structure, multiple sites; R92.323 Mammographic fibroglandular density, bilateral breasts ==

== ENCOUNTER → 2024-12-11 | Outpatient (CLI) | payer MEDICARE, OTHER ==
[2024-12-11 11:06] LABS: BASO # 0.0 10^3/uL (0.0-0.2); BASO % 0.7 % (0.0-1.0); EOS # 0.1 10^3/uL (0.0-0.5); EOS % 1.6 % (0.0-3.0); LYMPH # 1.7 10^3/uL (1.5-5.0); LYMPH % 30.2 % (24.0-44.0); MONO # 0.6 10^3/uL (0.0-0.8); MONO % 10.3 % (2.0-8.0); NEUTROPHILS # 3.2 10^3/uL (1.5-8.5); NEUTROPHILS % 57.0 % (36.0-66.0); PLATELET COUNT, AUTOMATED 279 10^3/uL (150-450)
[2024-12-11 11:07] LABS: ALT/SGPT 25.0 U/L (7.0-40); AST/SGOT 29.0 U/L (<34); CALCIUM LEVEL 9.2 MG/DL (8.3-10.6); CARBON DIOXIDE LEVEL 30.0 MMOL/L (20-31); CHLORIDE LEVEL 107.0 MMOL/L (98-107); CHOLESTEROL LEVEL 145.0 MG/DL (<200); CHOLESTEROL RISK RATIO 2.05 (<5); CREATININE FOR GFR 1.06 MG/DL (0.55-1.30); GLOMERULAR FILTRATION RATE 54.8 (>39); LDL CHOLESTEROL 56.4 MG/DL (<100); MAGNESIUM LEVEL 1.7 MG/DL (1.8-2.4); NON-HDL-C 74.4 MG/DL; POTASSIUM SERUM 4.7 MMOL/L (3.5-5.1); SODIUM LEVEL 145.0 MMOL/L (136-145); TRIGLYCERIDES LEVEL 90.0 MG/DL (<150)
[2024-12-11 11:13] LABS: CPK CREATINE PHOSPHOKINASE 107.0 U/L (34-145)
[2024-12-11 11:20] LABS: ESTIMATED AVERAGE GLUCOSE 131.0 MG/DL (60-110)
[2024-12-11 11:38] LABS: CREATININE, URINE 109.4 MG/DL
[2024-12-11 11:39] LABS: MALB URINE SIEMENS 167.0 MG/L; MAU/CREAT RATIO 152.6 MCG/MG (0.0-30.0)
== END ==
LOC: M PLALAB 07:36
PROVIDERS: ATTEND Family Medicine
DX: E78.2 Mixed hyperlipidemia (principal); E11.9 Type 2 diabetes mellitus without complications; E53.8 Deficiency of other specified B group vitamins; I11.0 Hypertensive heart disease with heart failure; I50.32 Chronic diastolic (congestive) heart failure; Z79.84 Long term (current) use of oral hypoglycemic drugs; Z79.899 Other long term (current) drug therapy